=== PATIENT | male | born 1960 | race African-American/Black ===

== ENCOUNTER 2019-11-26 13:03 | Inpatient (IN) | payer MEDICAID, OTHER ==
[~2019-11-26] VITALS: Ht 177.8 cm; Wt 67.7 kg
[2019-11-26 13:03] VITALS: BP 96/60
--- NOTE | 2019-11-26 13:22 | Emergency Room Report ---
History of Present Illness General Chief Complaint: Syncope Source: Patient (Deny Painter MD) Present Illness HPI Disclaimer: Please note that this report is being documented using [employer] technology. This can lead to erroneous entry secondary to incorrect interpretation by the dictating instrument. HPI: 69-year-old male presents for evaluation after syncopal episode. Arrives by EMS. Reportedly he was found in the side outside of a nursing facility and bystander called EMS. They was hot to the touch though temperature reduced once he was brought to the shade. EMS states his systolic blood pressures were approximately 100. They started IV fluids. No difficulty arousing the patient. The patient is somnolent but arousable. He is able to tell us his name and date of . Is not complaining of anything but repeatedly falls asleep during exam. Not providing any useful history at this time. PMH: Unable to obtain from patient PSH: Unable to obtain from patient Allergies: Unable to obtain from patient Social Hx: Unable to obtain from patient (Deny Painter MD) Allergies: Coded Allergies: No Known Allergies (Unverified , 11/26/19) COVID-19 Screening Contact w/high risk pt: No Experienced COVID-19 symptoms?: No COVID-19 Testing performed MOBILE HOME LABORER: No (Deny Painter MD) Nursing Documentation-PMH Past Medical History: No History, Except For Hx Hypertension: Yes History Of Psychiatric Problem: Yes (Deny Painter MD) Review of Systems All Other Systems: negative except mentioned in HPI (Deny Painter MD) Physical Exam Vital Signs Date Time Temp Pulse Resp B/P (MAP) Pulse Ox O2 Delivery O2 Flow Rate FiO2 11/26/19 12:58 99.0 95 20 100/60 (73) 95 Room Air General: Somnolent but arousable. HEENT: NC/AT. No outward signs of trauma. EOMI. pupils are 3 mm and reactive to light bilaterally. Cardiovascular: RRR. S1 and S2 normal. No murmur appreciated Resp: Normal work of breathing. No cough, wheezing or crackles appreciated Abdomen: Abdomen is soft, nondistended. Nontender Skin: Intact. No abrasions, laceration or rash over the exposed skin MSK: Normal tone and bulk. Moving all extremities. No obvious deformity. Neuro: Somnolent but arousable. GCS 12. Moving all extremities. (Deny Painter MD) Procedures Critical Care Time Critical Care Time Total critical care time: Approximately 45 minutes Due to a high probability of clinically significant, life threatening deterioration, the patient required the highest level of preparedness to intervene emergently and I personally spent this critical care time directly and personally managing the patient. This critical care time included obtaining a history, examining the patient, pulse oximetry, ordering and reviewing studies, ordering treatments, evaluating response to treatment and updating management plan as needed, frequent reassessment and discussion with other providers as well as arranging for ultimate disposition. This critical to care time was performed to assess and manage the high probability of life-threatening deterioration that could result in multiorgan failure. This critical care time is separate from the separately billable procedures and treating other patients. (Deny Painter MD) Medical Decision Making Diagnostic Impression: Primary Impression: Pneumonia Additional Impressions: Hyperthermia associated with heat JANN (acute kidney injury) Hypokalemia ER Course Is a 69-year-old male presenting for altered level of consciousness after being found outside in the sun. Differential includes was not limited to dehydration, syncope, seizure, ACS, exhaustion, heat stroke, occult injury to name a few. CT head does not show acute injury. Labs show renal dysfunction and hypokalemia. Patient is receiving IV fluids and potassium supplementation. Troponin negative. EKG nonischemic. Chest XR shows possibly pneumonia. Patient will be given antibiotics. He will require admission. Laboratory Tests Test 11/26/19 13:13 11/26/19 13:43 11/26/19 15:15 11/27/19 06:20 White Blood Count 5.0 K/UL (4.8-10.8) 5.8 K/UL (4.8-10.8) Red Blood Count 4.15 M/UL (4.70-6.10) L 4.69 M/UL (4.70-6.10) L Hemoglobin 12.2 G/DL (14.2-18.0) L 13.6 G/DL (14.2-18.0) L Hematocrit 35.9 % (42.0-52.0) L 40.9 % (42.0-52.0) L Mean Corpuscular Volume 86 FL (80-99) 87 FL (80-99) Mean Corpuscular Hemoglobin 29.4 PG (27.0-31.0) 29.1 PG (27.0-31.0) Mean Corpuscular Hemoglobin Concent 34.0 G/DL (32.0-36.0) 33.3 G/DL (32.0-36.0) Red Cell Distribution Width 12.6 % (11.6-14.8) 12.7 % (11.6-14.8) Platelet Count 212 K/UL (150-450) 231 K/UL (150-450) Mean Platelet Volume 7.3 FL (6.5-10.1) 7.3 FL (6.5-10.1) Neutrophils (%) (Auto) 62.9 % (45.0-75.0) 64.6 % (45.0-75.0) Lymphocytes (%) (Auto) 19.5 % (20.0-45.0) L 20.9 % (20.0-45.0) Monocytes (%) (Auto) 12.0 % (1.0-10.0) H 9.7 % (1.0-10.0) Eosinophils (%) (Auto) 4.5 % (0.0-3.0) H 3.8 % (0.0-3.0) H Basophils (%) (Auto) 1.2 % (0.0-2.0) 1.0 % (0.0-2.0) Sodium Level 144 MMOL/L (136-145) 144 MMOL/L (136-145) Potassium Level 2.8 MMOL/L (3.5-5.1) L 3.0 MMOL/L (3.5-5.1) L Chloride Level 106 MMOL/L (98-107) 106 MMOL/L (98-107) Carbon Dioxide Level 29 MMOL/L (21-32) 29 MMOL/L (21-32) Anion Gap 9 mmol/L (5-15) 9 mmol/L (5-15) Blood Urea Nitrogen 23 mg/dL (7-18) H 15 mg/dL (7-18) Creatinine 1.6 MG/DL (0.55-1.30) H 1.5 MG/DL (0.55-1.30) H Estimated Glomerular Filtration Rate 52.5 mL/min (>60) 58.4 mL/min (>60) Glucose Level 97 MG/DL (74-106) 87 MG/DL (74-106) Calcium Level 8.8 MG/DL (8.5-10.1) 8.6 MG/DL (8.5-10.1) Total Bilirubin 0.5 MG/DL (0.2-1.0) 0.5 MG/DL (0.2-1.0) Aspartate Amino Transferase (AST) 26 U/L (15-37) 23 U/L (15-37) Alanine Aminotransferase (ALT) 40 U/L (12-78) 30 U/L (12-78) Alkaline Phosphatase 80 U/L (46-116) 88 U/L (46-116) Troponin I 0.000 ng/mL (0.000-0.056) Pro-B-Type Natriuretic Peptide 137 pg/mL (0-125) H Total Protein 7.1 G/DL (6.4-8.2) 7.1 G/DL (6.4-8.2) Albumin 3.5 G/DL (3.4-5.0) 3.4 G/DL (3.4-5.0) Globulin 3.6 g/dL 3.7 g/dL Albumin/Globulin Ratio 1.0 (1.0-2.7) 0.9 (1.0-2.7) L Serum Alcohol < 3 mg/dL Urine Color Pale yellow Urine Appearance Slightly cloudy Urine pH 6 (4.5-8.0) Urine Specific [place] 1.010 (1.005-1.035) Urine Protein Negative (NEGATIVE) Urine Glucose (UA) Negative (NEGATIVE) Urine Ketones Negative (NEGATIVE) Urine Blood Negative (NEGATIVE) Urine Nitrite Negative (NEGATIVE) Urine Bilirubin Negative (NEGATIVE) Urine Urobilinogen Normal MG/DL (0.0-1.0) Urine Leukocyte Esterase 1+ (NEGATIVE) H Urine RBC 0-2 /HPF (0 - 0) H Urine WBC 0-2 /HPF (0 - 0) Urine Squamous Epithelial Cells Occasional /LPF Urine Bacteria Occasional /HPF (NONE) Urine Opiates Screen Negative (NEGATIVE) Urine Barbiturates Screen Negative (NEGATIVE) Phencyclidine (PCP) Screen Negative (NEGATIVE) Urine Amphetamines Screen Negative (NEGATIVE) Urine Benzodiazepines Screen Negative (NEGATIVE) Urine Cocaine Screen Negative (NEGATIVE) Urine Marijuana (THC) Screen Negative (NEGATIVE) Lactic Acid Level 0.40 mmol/L (0.4-2.0) Triglycerides Level 45 MG/DL (30-150) Cholesterol Level 114 MG/DL (< 200) LDL Cholesterol 48 mg/dL (<100) HDL Cholesterol 58 MG/DL (40-60) Cholesterol/HDL Ratio 2.0 (3.3-4.4) L Thyroid Stimulating Hormone (TSH) 1.352 uiU/mL (0.358-3.740) Test 11/28/19 05:48 White Blood Count 5.9 K/UL (4.8-10.8) Red Blood Count 4.86 M/UL (4.70-6.10) Hemoglobin 14.3 G/DL (14.2-18.0) Hematocrit 42.1 % (42.0-52.0) Mean Corpuscular Volume 87 FL (80-99) Mean Corpuscular Hemoglobin 29.4 PG (27.0-31.0) Mean Corpuscular Hemoglobin Concent 34.0 G/DL (32.0-36.0) Red Cell Distribution Width 12.8 % (11.6-14.8) Platelet Count 231 K/UL (150-450) Mean Platelet Volume 7.2 FL (6.5-10.1) Neutrophils (%) (Auto) 63.7 % (45.0-75.0) Lymphocytes (%) (Auto) 24.6 % (20.0-45.0) Monocytes (%) (Auto) 4.9 % (1.0-10.0) Eosinophils (%) (Auto) 5.3 % (0.0-3.0) H Basophils (%) (Auto) 1.5 % (0.0-2.0) Sodium Level 143 MMOL/L (136-145) Potassium Level 3.4 MMOL/L (3.5-5.1) L Chloride Level 106 MMOL/L (98-107) Carbon Dioxide Level 28 MMOL/L (21-32) Anion Gap 9 mmol/L (5-15) Blood Urea Nitrogen 13 mg/dL (7-18) Creatinine 1.4 MG/DL (0.55-1.30) H Estimated Glomerular Filtration Rate > 60 mL/min (>60) Glucose Level 84 MG/DL (74-106) Calcium Level 8.8 MG/DL (8.5-10.1) Phosphorus Level 2.4 MG/DL (2.5-4.9) L Magnesium Level 1.8 MG/DL (1.8-2.4) Microbiology Date/Time Source Procedure Growth Status 11/26/19 15:15 Nasopharynx SARS-CoV-2 RdRp Gene Assay - Final Complete (Deny Painter MD) ER Course Patient was endorsed me by Dr. Painter. See Dr. Painter's notes for full HPI and physical.Chest x-ray had showed a left lower lobe pneumonia. Patient had normal white blood count. He was noted to be febrile initially. Prior history of schizoaffective disorder. Coronavirus testing was ordered. Coronavirus test was negative. Patient was given IV antibiotics Patient's case was discussed with Dr[facility] for panel admission. Labs Test 11/26/19 13:13 11/26/19 13:43 White Blood Count 5.0 K/UL (4.8-10.8) Red Blood Count 4.15 M/UL (4.70-6.10) Hemoglobin 12.2 G/DL (14.2-18.0) Hematocrit 35.9 % (42.0-52.0) Mean Corpuscular Volume 86 FL (80-99) Mean Corpuscular Hemoglobin 29.4 PG (27.0-31.0) Mean Corpuscular Hemoglobin Concent 34.0 G/DL (32.0-36.0) Red Cell Distribution Width 12.6 % (11.6-14.8) Platelet Count 212 K/UL (150-450) Mean Platelet Volume 7.3 FL (6.5-10.1) Neutrophils (%) (Auto) 62.9 % (45.0-75.0) Lymphocytes (%) (Auto) 19.5 % (20.0-45.0) Monocytes (%) (Auto) 12.0 % (1.0-10.0) Eosinophils (%) (Auto) 4.5 % (0.0-3.0) Basophils (%) (Auto) 1.2 % (0.0-2.0) Sodium Level 144 MMOL/L (136-145) Potassium Level 2.8 MMOL/L (3.5-5.1) Chloride Level 106 MMOL/L (98-107) Carbon Dioxide Level 29 MMOL/L (21-32) Anion Gap 9 mmol/L (5-15) Blood Urea Nitrogen 23 mg/dL (7-18) Creatinine 1.6 MG/DL (0.55-1.30) Estimat Glomerular Filtration Rate 52.5 mL/min (>60) Glucose Level 97 MG/DL (74-106) Calcium Level 8.8 MG/DL (8.5-10.1) Total Bilirubin 0.5 MG/DL (0.2-1.0) Aspartate Amino Transf (AST/SGOT) 26 U/L (15-37) Alanine Aminotransferase (ALT/SGPT) 40 U/L (12-78) Alkaline Phosphatase 80 U/L (46-116) Troponin I 0.000 ng/mL (0.000-0.056) Total Protein 7.1 G/DL (6.4-8.2) Albumin 3.5 G/DL (3.4-5.0) Globulin 3.6 g/dL Albumin/Globulin Ratio 1.0 (1.0-2.7) Serum Alcohol < 3 mg/dL Urine Color Pale yellow Urine Appearance Slightly cloudy Urine pH 6 (4.5-8.0) Urine Specific [place] 1.010 (1.005-1.035) Urine Protein Negative (NEGATIVE) Urine Glucose (UA) Negative (NEGATIVE) Urine Ketones Negative (NEGATIVE) Urine Blood Negative (NEGATIVE) Urine Nitrite Negative (NEGATIVE) Urine Bilirubin Negative (NEGATIVE) Urine Urobilinogen Normal MG/DL (0.0-1.0) Urine Leukocyte Esterase 1+ (NEGATIVE) Urine Opiates Screen Negative (NEGATIVE) Urine Barbiturates Screen Negative (NEGATIVE) Phencyclidine (PCP) Screen Negative (NEGATIVE) Urine Amphetamines Screen Negative (NEGATIVE) Urine Benzodiazepines Screen Negative (NEGATIVE) Urine Cocaine Screen Negative (NEGATIVE) Urine Marijuana (THC) Screen Negative (NEGATIVE) (Tyson Osorio MD) EKG Diagnostic Results EKG Time: 13:07 Rate: normal Rhythm: NSR ST Segments: no acute changes Other Impression Sinus rhythm, normal axis, normal intervals, no ST segment changes (Deny Painter MD) Rhythm Strip Diag. Results Rhythm Strip Time: 13:07 EP Interpretation: yes Rate: 89 Rhythm: NSR, no PVC's, no ectopy (Deny Painter MD) Last Vital Signs Date Time Temp Pulse Resp B/P (MAP) Pulse Ox O2 Delivery O2 Flow Rate FiO2 11/26/19 12:58 99.0 95 20 100/60 (73) 95 Room Air (Deny Painter MD) Status: improved (Tyson Osorio MD) Disposition: ADMITTED INPATIENT Condition: Stable Deny Painter MD Nov 26, 2019 13:22 Tyson Osorio MD Nov 26, 2019 14:46
[2019-11-26 13:36] LABS: BASOPHILS % (AUTO) 1.2 % (0.0-2.0); EOSINOPHILS % (AUTO) 4.5 % (0.0-3.0); HEMATOCRIT 35.9 % (42.0-52.0); HEMOGLOBIN 12.2 G/DL (14.2-18.0); LYMPHOCYTES % (AUTO) 19.5 % (20.0-45.0); MEAN CORPUSCULAR VOLUME 86 FL (80-99); NEUTROPHILS % (AUTO) 62.9 % (45.0-75.0); PLATELET COUNT 212 K/UL (150-450); RED BLOOD COUNT 4.15 M/UL (4.70-6.10); RED CELL DISTRIBUTION WIDTH 12.6 % (11.6-14.8)
[2019-11-26] MEDS ORDERED: POTASSIUM CHLO20 ME3 PO (13:40)
[2019-11-26] MEDS ORDERED: METOPROLOL SUCC50 MG ORAL (13:40)
[2019-11-26] MEDS ORDERED: REMERON30 MG ORAL (13:40)
[2019-11-26] MEDS ORDERED: VITAMIN D32400 UNIT/ MC (13:40)
[2019-11-26] MEDS ORDERED: AMLODIPINE BESY10 MG ORAL (13:40)
[2019-11-26] MEDS ORDERED: THORAZINE10 MG PO (13:40)
[2019-11-26] MEDS ORDERED: HYDROCHLOROTHIA25 MG ORAL (13:40)
[2019-11-26] MEDS ORDERED: SEROQUEL200 MG ORAL (13:40)
[2019-11-26] MEDS ORDERED: BENZTROPINE MESY1 MG ORAL (13:40)
[2019-11-26] MEDS ORDERED: FERROUS SULFAT325 MG ORAL (13:40)
[2019-11-26 13:52] LABS: ALANINE AMINOTRANSFERASE 40 U/L (12-78); ALBUMIN 3.5 G/DL (3.4-5.0); ALKALINE PHOSPHATASE 80 U/L (46-116); ANION GAP 9 mmol/L (5-15); ASPARTATE AMINO TRANSFERASE 26 U/L (15-37); BILIRUBIN,TOTAL 0.5 MG/DL (0.2-1.0); BLOOD UREA NITROGEN 23 mg/dL (7-18); CALCIUM 8.8 MG/DL (8.5-10.1); CARBON DIOXIDE 29 MMOL/L (21-32); CHLORIDE 106 MMOL/L (98-107); CREATININE 1.6 MG/DL (0.55-1.30); POTASSIUM 2.8 MMOL/L (3.5-5.1); SODIUM 144 MMOL/L (136-145)
[2019-11-26 14:03] LABS: APPEARANCE,URINE SLIGHTLY CLOUDY; BILIRUBIN, URINE NEGATIVE (NEGATIVE); COLOR,URINE PALE YELLOW; GLUCOSE, URINE (UA) NEGATIVE (NEGATIVE); KETONES,URINE NEGATIVE (NEGATIVE); LEUKOCYTE ESTERASE ,URINE 1+ (NEGATIVE); NITRITE,URINE NEGATIVE (NEGATIVE); PH,URINE 6 (4.5-8.0); PROTEIN,URINE NEGATIVE (NEGATIVE); UROBILINOGEN,URINE NORMAL MG/DL (0.0-1.0)
--- NOTE | 2019-11-26 14:25 | Diagnostic Imaging Report ---
CT HEAD Without Contrast HISTORY: Altered mental status TECHNIQUE: One or more of the following dose reduction techniques were used: automated exposure control, adjustment of the mA and/or kV according to patient size, use of iterative reconstruction technique. Coronal reconstructions were obtained. One or more of the following dose reduction techniques were used: automated exposure control, adjustment of the mA and/or kV according to patient size, use of iterative reconstruction technique. Total Exam volume computed tomography dose index (CTDIvol) = 53.4 mGy and Dose Length Product (DLP) = 965.4 mGY-c COMPARISON: Head CT June 16, 2011 FINDINGS: No intracranial hemorrhage, abnormal intra- or extra-axial collections or parenchymal lesions are seen. The shape and configuration of the cortical sulci, basal cisterns and ventricles are within normal limits. The denise-white differentiation is preserved. No evidence of mass effect, midline shift, or edema. The osseous structures are unremarkable. The visualized portions of the paranasal sinuses are clear. Subcutaneous cyst within the right scalp. IMPRESSION: No acute intracranial findings.
--- NOTE | 2019-11-26 14:30 | Diagnostic Imaging Report ---
FILM CXR 1 VIEW INDICATION: Altered mental status COMPARISON: June 16, 2011 FINDINGS: Single frontal view demonstrates a normal cardiomediastinal silhouette. Left lower lobe pneumonia. Air-filled loops of bowel in the upper abdomen. No pleural effusions. The visualized osseous structures are within normal limits. IMPRESSION: Left lower lobe pneumonia.
[2019-11-26] MEDS ORDERED: cefTRIAXone 1 GM in NS 55 ML IVPB ONE (14:45)
[2019-11-26 16:00] VITALS: BP 124/79
[2019-11-26] MEDS ORDERED: Albuterol/Ipratropium 3ml neb HHN PRN (16:45)
[2019-11-26] MEDS ORDERED: Metoclopramide 10mg/2ml Inj IVP PRN (16:45)
[2019-11-26] MEDS ORDERED: Miralax 17gm pkt ORAL PRN (16:45)
--- NOTE | 2019-11-26 17:30 | History and Physical ---
History of Present Illness General Date patient seen: Nov 26, 2019 Reason for Hospitalization: Syncope Present Illness HPI Mr. Kaur is a 59M with PMh of schizophrenia, COPD, HTN, and Vit D deficiency who presented via ambulance after being found unresponsive outside. Majority of history taken from discussion with ED physician as patient is poor historian. Per ED physician, patient resides at a assisted living facility and was found unresponsive by bystanders outside the facility. Upon EMS arrival patient was found "hot" and brought under the shade for cooling measures. He was arousable able to respond to most answers appropriately. Vitals were wnl. He does not remember how he got to the hospital. He says he has a hx of schizophrenia but does not know his medications. He is positive for a cough, sob, intermittent chest pain, and constipation. Denies fevers, chills. No head trauma. No other hx was attainable. Rest of 10 point ROS is negative besides whats stated above. In the ED, patient was found to be hemodynmically stable and started on IVF. CT brain was negative for acute pathology and CXR showed LLL PNA. He was started on abx. He will be admitted for PNA, syncope, and JANN. PMH: Schziophrenia, COPD, HTN, VIt D deficiency Sx: none Fx: denies cardiac, pulmonary diseases Aller:nka Soc: social drinker, denies smoking or drug use Allergies: Coded Allergies: No Known Allergies (Unverified , 11/26/19) COVID-19 Screening Contact w/high risk pt: No Experienced COVID-19 symptoms?: No Medication History Scheduled Amlodipine Besylate* (Amlodipine Besylate*), 10 MG ORAL DAILY, (Reported) Benztropine Mesylate* (Benztropine Mesylate*), 1 MG ORAL BID, (Reported) Chlorpromazine (Chlorpromazine HCl), 100 MG PO QID, (Reported) Cholecalciferol (Vitamin D3) (Vitamin D3), 5,000 UNIT MC weekly, (Reported) Ferrous Sulfate* (Ferrous Sulfate*), 325 MG ORAL TWICE A DAY, (Reported) Hydrochlorothiazide* (Hydrochlorothiazide*), 25 MG ORAL DAILY, (Reported) Metoprolol Succinate* (Metoprolol Succinate*), 50 MG ORAL DAILY, (Reported) Mirtazapine* (Remeron*), 30 MG ORAL BEDTIME, (Reported) Potassium Chloride (Potassium Chloride), 8 MEQ PO DAILY, (Reported) Quetiapine Fumarate* (Seroquel*), 300 MG ORAL DAILY, (Reported) Patient History Healthcare decision maker Resuscitation status Advanced Directive on File Physical Exam General Appearance: no apparent distress, lethargic, confused, obese HEENT: normocephalic, atraumatic Neck: non-tender, normal inspection Respiratory/Chest: normal breath sounds, no respiratory distress, crackles/rales, rhonchi - bilaterally Cardiovascular/Chest: normal rate, regular rhythm, no JVD Abdomen: normal bowel sounds, non tender, soft Extremities: pitting - bilateral pitting edema Skin Exam: warm/dry Neurologic: manager target II-XII grossly normal, disoriented Last 24 Hour Vital Signs Date Time Temp Pulse Resp B/P (MAP) Pulse Ox O2 Delivery O2 Flow Rate FiO2 11/26/19 16:00 98.9 68 17 124/79 99 Room Air 11/26/19 13:03 99.1 78 20 96/60 95 Room Air 11/26/19 12:58 99.0 95 20 100/60 (73) 95 Room Air Laboratory Tests Test 11/26/19 13:13 11/26/19 13:43 11/26/19 15:15 White Blood Count 5.0 K/UL (4.8-10.8) Red Blood Count 4.15 M/UL (4.70-6.10) L Hemoglobin 12.2 G/DL (14.2-18.0) L Hematocrit 35.9 % (42.0-52.0) L Mean Corpuscular Volume 86 FL (80-99) Mean Corpuscular Hemoglobin 29.4 PG (27.0-31.0) Mean Corpuscular Hemoglobin Concent 34.0 G/DL (32.0-36.0) Red Cell Distribution Width 12.6 % (11.6-14.8) Platelet Count 212 K/UL (150-450) Mean Platelet Volume 7.3 FL (6.5-10.1) Neutrophils (%) (Auto) 62.9 % (45.0-75.0) Lymphocytes (%) (Auto) 19.5 % (20.0-45.0) L Monocytes (%) (Auto) 12.0 % (1.0-10.0) H Eosinophils (%) (Auto) 4.5 % (0.0-3.0) H Basophils (%) (Auto) 1.2 % (0.0-2.0) Sodium Level 144 MMOL/L (136-145) Potassium Level 2.8 MMOL/L (3.5-5.1) L Chloride Level 106 MMOL/L (98-107) Carbon Dioxide Level 29 MMOL/L (21-32) Anion Gap 9 mmol/L (5-15) Blood Urea Nitrogen 23 mg/dL (7-18) H Creatinine 1.6 MG/DL (0.55-1.30) H Estimat Glomerular Filtration Rate 52.5 mL/min (>60) Glucose Level 97 MG/DL (74-106) Calcium Level 8.8 MG/DL (8.5-10.1) Total Bilirubin 0.5 MG/DL (0.2-1.0) Aspartate Amino Transf (AST/SGOT) 26 U/L (15-37) Alanine Aminotransferase (ALT/SGPT) 40 U/L (12-78) Alkaline Phosphatase 80 U/L (46-116) Troponin I 0.000 ng/mL (0.000-0.056) Total Protein 7.1 G/DL (6.4-8.2) Albumin 3.5 G/DL (3.4-5.0) Globulin 3.6 g/dL Albumin/Globulin Ratio 1.0 (1.0-2.7) Serum Alcohol < 3 mg/dL Urine Color Pale yellow Urine Appearance Slightly cloudy Urine pH 6 (4.5-8.0) Urine Specific [place] 1.010 (1.005-1.035) Urine Protein Negative (NEGATIVE) Urine Glucose (UA) Negative (NEGATIVE) Urine Ketones Negative (NEGATIVE) Urine Blood Negative (NEGATIVE) Urine Nitrite Negative (NEGATIVE) Urine Bilirubin Negative (NEGATIVE) Urine Urobilinogen Normal MG/DL (0.0-1.0) Urine Leukocyte Esterase 1+ (NEGATIVE) H Urine RBC 0-2 /HPF (0 - 0) H Urine WBC 0-2 /HPF (0 - 0) Urine Squamous Epithelial Cells Occasional /LPF Urine Bacteria Occasional /HPF (NONE) Urine Opiates Screen Negative (NEGATIVE) Urine Barbiturates Screen Negative (NEGATIVE) Phencyclidine (PCP) Screen Negative (NEGATIVE) Urine Amphetamines Screen Negative (NEGATIVE) Urine Benzodiazepines Screen Negative (NEGATIVE) Urine Cocaine Screen Negative (NEGATIVE) Urine Marijuana (THC) Screen Negative (NEGATIVE) Lactic Acid Level 0.40 mmol/L (0.4-2.0) Microbiology Date/Time Source Procedure Growth Status 11/26/19 15:15 Nasopharynx SARS-CoV-2 RdRp Gene Assay - Final Complete Height (Feet): 5 Height (Inches): 10.00 Weight (Pounds): 150 Medications Current Medications Medications (Trade) Dose Ordered Sig/Efraín Route PRN Reason Start Time Stop Time Status Last Admin Dose Admin Acetaminophen (Tylenol) 650 mg Q4H PRN ORAL Mild Pain (Pain Scale 1-3) 11/26/19 16:45 12/26/19 16:44 UNV Albuterol/ Ipratropium (Albuterol/ Ipratropium) 3 ml Q4H PRN HHN Shortness of Breath 11/26/19 16:45 12/01/19 16:44 UNV Azithromycin 500 mg/Dextrose 275 ml @ 275 mls/hr Q24H IV 11/26/19 17:45 12/01/19 17:44 UNV Bisacodyl (Dulcolax) 10 mg DAILYPRN PRN RECTAL Constipation 11/26/19 16:45 02/24/20 16:44 UNV Ceftriaxone Sodium 1 gm/ Dextrose 55 ml @ 110 mls/hr Q24H IV 11/26/19 17:45 12/03/19 17:44 UNV Heparin Sodium (Porcine) (Heparin 5000 units/ml) 5,000 units EVERY 12 HOURS SUBQ 11/26/19 21:00 01/10/20 20:59 UNV Metoclopramide HCl (Reglan) 10 mg Q6H PRN IVP Nausea & Vomiting 11/26/19 16:45 12/26/19 16:44 UNV Polyethylene Glycol (Miralax) 17 gm DAILYPRN PRN ORAL Constipation 11/26/19 16:45 12/26/19 16:44 UNV Assessment/Plan Assessment/Plan: Mr. Kaur merle 59M with PMH of scheizphrenia who is brought in for ?syncope, PNA and Jann # Syncope 2/2 cardiogenic vs orthostatic vs medication induced vs heat exhaustion # Left Lower Lobe CAP # JANN likely 2/2 pre-renal azotemia # Hx of Schizophrenia # Hz of COPD # Hx of HTN # Dependent Edema # Prolong Qt - Qtc 484 # Hx of Vitamin D Deficiency P: - hemodynamically stable - orthostatic vital signs - hold BP Meds given possible syncope - trops negative - ekg: nsr, no intraventricular conduction abnormalities, has lateral T wave flattening - f/u ECHO - start Rocephin, azithromycin for PNA - f/u BC - UA, and drug screen negative - IVF - monitor renal function - consult psychiatry, recs appreciated - continue home psych meds, will defer psych meds - PT - CM GI: none Diet: regular Fluids: NS 75 cc Abx: Rocephin, azithromycin DVT: heparin 5000 mg BID CODE: Full Diso: pending syncope work up, response to abx, and psych consult In addition to the usual care above I spent additional time reviewing records in the EMR and paper charts including physician documentation, nursing documentation, lab results, imaging and clinical documentation. Total time included was 35 min. Advanced care planning 25 minutes was spent which included discussion of both acute and chronic medical illnesses, code status, goals of care and advanced directives and POLST. Time spent on this encounter was 85 minutes which included 45 minutes of counse ling and care coordination. I discussed with the nurse at bedside. Time of note may not reflect time patient was seen. Tyson Maldonado D.O Nov 26, 2019 17:30
[2019-11-26 17:52] VITALS: BP 128/65
[2019-11-26] MEDS: Azithromycin 500 MG in D5W 275 ML IV SCH (18:30)
[2019-11-26 21:00] VITALS: BP_SYST 108; BP_SYST 124; BP_DIAS 62; BP_DIAS 86
[2019-11-26] MEDS: Heparin 5000 units/ml inj SUBQ SCH (21:00)
--- NOTE | 2019-11-26 21:07 | General Progress Note ---
Advance Care Planning Advance Care Planning Advance Care Planning [facility] An independent Hospitalist group, where every patient is our [facility] Internal Medicine Hospitalist Advanced Care Planning Note Please contact us at Date of Discussion: A [id number] discussion with the patient regarding the patient's advanced care planning took place during this hospitalization on the above date. The discussion included the explanation and discussion of advance directives and associated forms/documents, as well as the patient's current code status. We also discussed at length the patient's medical conditions (both acute and chroni c), general prognosis, treatment options, and goals of care. The following summarizes the discussion: Advance Care Planning/Goals of Care: - Will attempt to fill out an AD and/or POLST with the patient prior to discharge, if not already completed - Continue current evaluation and management of any acute and chronic medical issues - Will continue to support the patient/family - Will continue to discuss both short- and long-term goals of care DPOA-HC/Surrogate Decision Maker: None currently appointed Code Status: Full Code Advanced Care Planning Forms/Documents Completed: Deferred until later encounter/visit A total of 17 minutes was spent on this discussion, including counseling, answering questions, and completing, if any, pertinent advanced care planning forms/documents. Time of note may not reflect time of encounter. Tyson Maldonado D.O Nov 26, 2019 21:07
[2019-11-27] VITALS: BP 118/73
[2019-11-27 04:00] VITALS: BP 115/69
[2019-11-27 07:24] LABS: EOSINOPHILS % (AUTO) 3.8 % (0.0-3.0); HEMATOCRIT 40.9 % (42.0-52.0); HEMOGLOBIN 13.6 G/DL (14.2-18.0); LYMPHOCYTES % (AUTO) 20.9 % (20.0-45.0); MEAN CORPUSCULAR VOLUME 87 FL (80-99); MONOCYTES % (AUTO) 9.7 % (1.0-10.0); NEUTROPHILS % (AUTO) 64.6 % (45.0-75.0); PLATELET COUNT 231 K/UL (150-450); RED BLOOD COUNT 4.69 M/UL (4.70-6.10); RED CELL DISTRIBUTION WIDTH 12.7 % (11.6-14.8); WHITE BLOOD COUNT 5.8 K/UL (4.8-10.8)
[2019-11-27 07:41] LABS: ALANINE AMINOTRANSFERASE 30 U/L (12-78); ALBUMIN 3.4 G/DL (3.4-5.0); ALBUMIN/GLOBULIN RATIO 0.9 (1.0-2.7); ALKALINE PHOSPHATASE 88 U/L (46-116); ANION GAP 9 mmol/L (5-15); ASPARTATE AMINO TRANSFERASE 23 U/L (15-37); BILIRUBIN,TOTAL 0.5 MG/DL (0.2-1.0); BLOOD UREA NITROGEN 15 mg/dL (7-18); CALCIUM 8.6 MG/DL (8.5-10.1); CARBON DIOXIDE 29 MMOL/L (21-32); CHLORIDE 106 MMOL/L (98-107); CHOLESTEROL 114 MG/DL (< 200); CREATININE 1.5 MG/DL (0.55-1.30); HDL CHOLESTEROL 58 MG/DL (40-60); SODIUM 144 MMOL/L (136-145); TRIGLYCERIDES 45 MG/DL (30-150)
[2019-11-27 08:00] VITALS: BP 102/69
[2019-11-27] MEDS: Heparin 5000 units/ml inj SUBQ SCH ×2 (08:42→20:06)
--- NOTE | 2019-11-27 10:44 | General Progress Note ---
Subjective Date patient seen: Nov 27, 2019 Constitutional: Denies: no symptoms, chills, diaphoresis, fever, malaise, weakness, other HEENT: Denies: no symptoms, eye pain, blurred vision, tearing, double vision, ear pain, ear discharge, nose pain, nose congestion, throat pain, throat swelling, mouth pain, mouth swelling, other Cardiovascular: Denies: no symptoms, chest pain, edema, irregular heart rate, lightheadedness, palpitations, syncope, other Respiratory: Denies: no symptoms, cough, orthopnea, shortness of breath, SOB with excertion, SOB at rest, sputum, stridor, wheezing, other Gastrointestinal/Abdominal: Denies: no symptoms, abdomen distended, abdominal pain, black stools, tarry stools, blood in stool, constipated, diarrhea, difficulty swallowing, nausea, poor appetite, poor fluid intake, rectal bleeding, vomiting, other Genitourinary: Denies: no symptoms, burning, discharge, frequency, flank pain, hematuria, incontinence, pain, urgency, other Neurologic/Psychiatric: Denies: no symptoms, anxiety, depressed, emotional problems, headache, numbness, paresthesia, pre-existing deficit, seizure, tingling, tremors, weakness, other Endocrine: Denies: no symptoms, excessive sweating, flushing, intolerance to cold, intolerance to heat, increased hunger, increased thirst, increased urine, unexplained weight gain, unexplained weight loss, other Hematologic/Lymphatic: Denies: no symptoms, anemia, easy bleeding, easy bruising, other Allergies: Coded Allergies: No Known Allergies (Unverified , 11/26/19) Subjective no acute events overnight. Patient much more awake and alert this morning, however, AOx1. He is able to answer questions on ROS appropraitely. Denies fevers, cough, sob, chest pain, pre-syncope. Pending psych eval. Objective Last 24 Hour Vital Signs Date Time Temp Pulse Resp B/P (MAP) Pulse Ox O2 Delivery O2 Flow Rate FiO2 11/27/19 08:00 98.1 77 21 102/69 (80) 96 11/27/19 04:00 97.9 73 19 115/69 (84) 96 11/27/19 04:00 70 11/27/19 00:11 Room Air 11/27/19 00:00 70 11/27/19 00:00 98.1 86 19 118/73 (88) 96 11/26/19 21:00 97.5 89 20 124/86 (99) 97 11/26/19 21:00 68 11/26/19 20:48 98.6 67 15 109/73 100 Room Air 11/26/19 17:52 98.6 72 15 128/65 100 Room Air 11/26/19 16:00 98.9 68 17 124/79 99 Room Air 11/26/19 13:03 99.1 78 20 96/60 95 Room Air 11/26/19 12:58 99.0 95 20 100/60 (73) 95 Room Air Intake and Output 11/26/19 11/27/19 19:00 07:00 Intake Total 2255 ml 2000 ml Output Total 0 ml 2000 ml Balance 2255 ml 0 ml Intake Oral 0 ml IV Total 2255 ml 2000 ml Output Urine Total 0 ml 2000 ml Laboratory Tests 11/26/19 13:13: White Blood Count 5.0, Red Blood Count 4.15L, Hemoglobin 12.2L, Hematocrit 35.9L , Mean Corpuscular Volume 86, Mean Corpuscular Hemoglobin 29.4, Mean Corpuscular Hemoglobin Concent 34.0, Red Cell Distribution Width 12.6, Platelet Count 212, Mean Platelet Volume 7.3, Neutrophils (%) (Auto) 62.9, Lymphocytes (%) (Auto) 19.5L, Monocytes (%) (Auto) 12.0H, Eosinophils (%) (Auto) 4.5H, Basophils (%) (Auto) 1.2, Sodium Level 144, Potassium Level 2.8L, Chloride Level 106, Carbon Dioxide Level 29, Anion Gap 9, Blood Urea Nitrogen 23H, Creatinine 1.6H, Estimat Glomerular Filtration Rate 52.5, Glucose Level 97, Calcium Level 8.8, Total Bilirubin 0.5, Aspartate Amino Transf (AST/SGOT) 26, Alanine Aminotransferase (ALT/SGPT) 40, Alkaline Phosphatase 80, Troponin I 0.000, Pro-B-Type Natriuretic Peptide 137H, Total Protein 7.1, Albumin 3.5, Globulin 3.6, Albumin/Globulin Ratio 1.0, Serum Alcohol < 3 11/26/19 13:43: Urine Color Pale yellow, Urine Appearance Slightly cloudy, Urine pH 6, Urine Specific [place] 1.010, Urine Protein Negative, Urine Glucose (UA) Negative, Urine Ketones Negative, Urine Blood Negative, Urine Nitrite Negative, Urine Bilirubin Negative, Urine Urobilinogen Normal, Urine Leukocyte Esterase 1+H, Urine RBC 0-2H, Urine WBC 0-2, Urine Squamous Epithelial Cells Occasional, Urine Bacteria Occasional, Urine Opiates Screen Negative, Urine Barbiturates Screen Negative, Phencyclidine (PCP) Screen Negative, Urine Amphetamines Screen Negative, Urine Benzodiazepines Screen Negative, Urine Cocaine Screen Negative, Urine Marijuana (THC) Screen Negative 11/26/19 15:15: Lactic Acid Level 0.40 11/27/19 06:20: White Blood Count 5.8, Red Blood Count 4.69L, Hemoglobin 13.6L, Hematocrit 40.9L , Mean Corpuscular Volume 87, Mean Corpuscular Hemoglobin 29.1, Mean Corpuscular Hemoglobin Concent 33.3, Red Cell Distribution Width 12.7, Platelet Count 231, Mean Platelet Volume 7.3, Neutrophils (%) (Auto) 64.6, Lymphocytes (%) (Auto) 20.9, Monocytes (%) (Auto) 9.7, Eosinophils (%) (Auto) 3.8H, Basophils (%) (Auto) 1.0, Sodium Level 144, Potassium Level 3.0L, Chloride Level 106, Carbon Dioxide Level 29, Anion Gap 9, Blood Urea Nitrogen 15, Creatinine 1.5H, Estimat Glomerular Filtration Rate 58.4, Glucose Level 87, Calcium Level 8.6, Total Bilirubin 0.5, Aspartate Amino Transf (AST/SGOT) 23, Alanine Aminotransferase (ALT/SGPT) 30, Alkaline Phosphatase 88, Total Protein 7.1, Albumin 3.4, Globulin 3.7, Albumin/Globulin Ratio 0.9L, Triglycerides Level 45, Cholesterol Level 114, LDL Cholesterol 48, HDL Cholesterol 58, Cholesterol/HDL Ratio 2.0L, Thyroid Stimulating Hormone (TSH) 1.352 Height (Feet): 5 Height (Inches): 10.00 Weight (Pounds): 150 General Appearance: no apparent distress, alert, other - Aox1 EENT: PERRL/EOMI Neck: normal alignment, supple, normal inspection Cardiovascular: normal rate, regular rhythm, no JVD Respiratory/Chest: no respiratory distress, crackles/rales Abdomen: normal bowel sounds, non tender, soft Extremities: normal range of motion, non-tender Edema: no edema noted Arm (L), no edema noted Arm (R); 1+ Leg (L), 1+ Leg (R) Neurologic: mail delivery supervisor II-XII grossly normal, disoriented Assessment/Plan Assessment/Plan: Mr. Kaur merle 59M with PMH of scheizphrenia who is brought in for ?syncope, PNA and Sylvester # Acute on ?chronic encephalopathy 2/2 heat exhaustion, medication non- compliance, PNA - improved # Syncope 2/2 cardiogenic vs orthostatic vs medication induced vs heat exhaustion # Left Lower Lobe CAP # SYLVESTER likely 2/2 pre-renal azotemia # Hx of Schizophrenia # Hz of COPD # Hx of HTN # Dependent Edema # Prolong Qt - Qtc 484 # Hx of Vitamin D Deficiency P: - hemodynamically stable, more awake today - hold BP Meds given possible syncope - ekg: nsr, no intraventricular conduction abnormalities, has lateral T wave flattening - f/u ECHO given ekg findings, LE edema - continue Rocephin, azithromycin for PNA - f/u BC - UA, and drug screen negative - IVF - monitor renal function, slightly improving - consult psychiatry, recs appreciated - will defer psych meds - PT - CM GI: none Diet: regular Fluids: NS 125 cc Abx: Rocephin, azithromycin DVT: heparin 5000 mg BID CODE: Full Diso: mentation improving, pending psych consult, renal consult, d/c back to living facility when improved Time spent on this encounter was 45 minutes which included 45 minutes of counseling and care coordination. I discussed with the nurse at bedside. Time of note may not reflect time patient was seen. Tyson Maldonado D.O Nov 27, 2019 10:44
[2019-11-27 15:46] VITALS: BP 120/80
[2019-11-27] MEDS ORDERED: cefTRIAXone 1 GM in D5W 55 ML IVPB SCH (17:00)
[2019-11-27] MEDS: Azithromycin 500 MG in D5W 275 ML IV SCH (18:06)
[2019-11-27 20:00] VITALS: BP 116/72
[2019-11-27] MEDS ORDERED: POTASSIUM CHLOR8 ME2 PO (21:46)
[2019-11-27] MEDS ORDERED: MIRTAZAPINE15 M3 ORAL (21:46)
[2019-11-27] MEDS ORDERED: CHLORPROMAZINE100 MG PO (21:46)
[2019-11-27] MEDS ORDERED: VITAMIN D3125 MCG PO (21:46)
[2019-11-27] MEDS ORDERED: QUETIAPINE FUM300 MG ORAL (21:46)
--- NOTE | 2019-11-27 22:38 | Psych Consult Progress Note ---
Psychiatry Progress Note Psychiatry Progress Note Medications Current Medications Medications (Trade) Dose Ordered Sig/Efraín Route PRN Reason Start Time Stop Time Status Last Admin Dose Admin Acetaminophen (Tylenol) 650 mg Q4H PRN ORAL Mild Pain (Pain Scale 1-3) 11/26/19 16:45 12/26/19 16:44 Albuterol/ Ipratropium (Albuterol/ Ipratropium) 3 ml Q4H PRN HHN Shortness of Breath 11/26/19 16:45 12/01/19 16:44 Azithromycin 500 mg/Dextrose 275 ml @ 275 mls/hr Q24H IV 11/26/19 18:30 12/01/19 18:29 11/27/19 18:06 Bisacodyl (Dulcolax) 10 mg DAILYPRN PRN RECTAL Constipation 11/26/19 16:45 02/24/20 16:44 Ceftriaxone Sodium 1 gm/ Dextrose 55 ml @ 110 mls/hr Q24H IVPB 11/27/19 17:00 12/04/19 16:59 11/27/19 16:28 Escitalopram Oxalate (Lexapro) 10 mg DAILY ORAL 11/28/19 09:00 12/28/19 08:59 Heparin Sodium (Porcine) (Heparin 5000 units/ml) 5,000 units EVERY 12 HOURS SUBQ 11/26/19 21:00 01/10/20 20:59 11/27/19 20:06 Metoclopramide HCl (Reglan) 10 mg Q6H PRN IVP Nausea & Vomiting 11/26/19 16:45 12/26/19 16:44 Polyethylene Glycol (Miralax) 17 gm DAILYPRN PRN ORAL Constipation 11/26/19 16:45 12/26/19 16:44 Risperidone (RisperDAL) 2 mg BEDTIME ORAL 11/27/19 21:00 01/11/20 20:59 11/27/19 20:05 Sodium Chloride 1,000 ml @ 125 mls/hr Q8H IV 11/26/19 17:00 12/26/19 16:59 11/27/19 11:58 Neurological/Psychiatric: Denies: no symptoms, anxiety, depressed, emotional problems, headache, numbness, paresthesia, pre-existing deficit, seizure, tingling, tremors, weakness, other Allergies: Coded Allergies: No Known Allergies (Unverified , 11/26/19) Objective Data Height (Feet): 5 Height (Inches): 10.00 Weight (Pounds): 150 General Appearance: no apparent distress, alert, other - Aox1 Kirstin Fairchild MD Nov 27, 2019 22:38
--- NOTE | 2019-11-27 23:15 | Consultation ---
DATE OF CONSULTATION: 11/27/2019 CONSULTING PHYSICIAN: Kirstin Fairchild MD. HISTORY OF PRESENT ILLNESS: This is a 59-year-old male with a history of depression and psychotic disorder who was admitted to the hospital for medical stabilization. Patient has a history of schizophrenia, COPD, , and hypertension. Patient is a poor historian. Has anxiety, auditory hallucination, depressed mood, anhedonia, worthlessness, hopelessness. No SI or HI. Has cognitive impairment. PAST PSYCHIATRIC HISTORY: Schizophrenia. He stated that he has had several psychiatric hospitalizations. No suicide attempt. Unable to recall the medications taken in the past for schizophrenia. PAST MEDICAL HISTORY: COPD, hypertension, vitamin D deficiency. ALLERGIES: No known drug allergies. SUBSTANCE ABUSE HISTORY: He denies illicit drug use or alcohol. Toxicology is negative. MENTAL STATUS EXAMINATION: Alert, oriented times self, place, and situation. Mood is depressed and anxious. Affect is blunted and congruent with mood. Thought process is concrete. Thought content, no suicidal or homicidal ideation. Positive for auditory hallucinations. Cognition is impaired. Insight and judgment is impaired. ASSESSMENT: Everton I Schizophrenia. Anxiety disorder. Everton II Deferred. Everton III As above. Everton IV Low. Everton V 20. PLAN: 1. We will start patient on Lexapro 10 mg in the morning. 2. Risperidone 2 mg at bedtime. 3. Provide the patient with reality orientation. 4. Supportive therapy. Kirstin Fairchild M.D. DR: GIANNI JOB#: [id number] CC:
[2019-11-27 23:56] VITALS: BP 120/67
[2019-11-28 06:46] LABS: BASOPHILS % (AUTO) 1.5 % (0.0-2.0); EOSINOPHILS % (AUTO) 5.3 % (0.0-3.0); HEMATOCRIT 42.1 % (42.0-52.0); HEMOGLOBIN 14.3 G/DL (14.2-18.0); LYMPHOCYTES % (AUTO) 24.6 % (20.0-45.0); MEAN CORPUSCULAR VOLUME 87 FL (80-99); MONOCYTES % (AUTO) 4.9 % (1.0-10.0); NEUTROPHILS % (AUTO) 63.7 % (45.0-75.0); PLATELET COUNT 231 K/UL (150-450); RED BLOOD COUNT 4.86 M/UL (4.70-6.10); RED CELL DISTRIBUTION WIDTH 12.8 % (11.6-14.8); WHITE BLOOD COUNT 5.9 K/UL (4.8-10.8)
[2019-11-28 07:19] LABS: ANION GAP 9 mmol/L (5-15); BLOOD UREA NITROGEN 13 mg/dL (7-18); CALCIUM 8.8 MG/DL (8.5-10.1); CARBON DIOXIDE 28 MMOL/L (21-32); CHLORIDE 106 MMOL/L (98-107); CREATININE 1.4 MG/DL (0.55-1.30); PHOSPHORUS 2.4 MG/DL (2.5-4.9); POTASSIUM 3.4 MMOL/L (3.5-5.1); SODIUM 143 MMOL/L (136-145)
[2019-11-28 08:00] VITALS: BP 124/83
[2019-11-28] MEDS: Heparin 5000 units/ml inj SUBQ SCH (08:02)
[2019-11-28 11:59] VITALS: BP 116/72
[2019-11-28] MEDS ORDERED: LEXAPRO10 MG ORAL ×2 (13:30→14:41)
[2019-11-28] MEDS ORDERED: RISPERDAL2 MG ORAL ×2 (13:30→14:41)
[2019-11-28] MEDS ORDERED: AUGMENTIN 875-1 EAC1 ORAL ×2 (13:30→14:41)
[2019-11-28 16:00] VITALS: BP 132/79
--- NOTE | 2019-11-28 16:28 | Discharge Summary ---
Discharge Summary Hospital Course Date of Admission Nov 26, 2019 at 18:00 Date of Discharge Admitting Diagnosis heat syncope HPI Rigoberto Kaur is a 59 year old male who was admitted on Nov 26, 2019 at 18:00 for Heat Syncope Hospital Course PHYSICAL EXAM: General: Resting comfortably in bed HEENT: EOMI, Neck Supple Cardiac: Regular rate and rhythm Lungs: CTABL Skin: warm and dry Neuro: CN II-XII grossly intact # Syncope 2/2 cardiogenic vs orthostatic vs medication induced vs heat exhaustio n # Left Lower Lobe CAP Patient initially presented with hypotension likely 2' heat exhaustion and volume depletion. CXR was consistent with LLL pna. Patient was started on azithromycin and rocephen. BC x2 were negative. Covid19 testing was negative. Patient is to continue on Augmentin for 5d for a total of 7d of treatment. # JANN likely 2/2 pre-renal azotemia Likely 2' volume depletion. Creatinine downtrending with fluids. # Hx of Schizophrenia Evaluated by Psychiatry in patient. Patient was not taking his medications prior to admission which likely contributed to altered mentation on admission. He is to start on Risperdal and Lexapro. Prior home medications were discontinued on discharge, per recs from Psychiatry. # Hx of HTN Continue on current home medications # Prolong Qt - Qtc 484 # Hx of Vitamin D Deficiency Continue PO home meds. Diet: regular CODE: Full Discharged to [facility]. Time spent on this encounter was 45 minutes which included 25minutes of counseling and care coordination with Psychiatry, CM, and Nursing staff. Time of note may not reflect time patient was seen. Discharge Condition Upon Discharge: stable Discharge Vital Signs Last Vital Signs Date Time Temp Pulse Resp B/P (MAP) Pulse Ox O2 Delivery O2 Flow Rate FiO2 11/28/19 16:00 97.1 83 18 132/79 (96) 100 11/28/19 09:00 Room Air Discharge Disposition Patient was discharged to [facility] Nuvia Malik M.D. Nov 28, 2019 16:28
--- NOTE | 2019-11-28 19:57 | Cardiology Report ---
APPROVED REPORT EXAM: Two-dimensional and M-mode echocardiogram with Doppler and color Doppler. INDICATION Syncope M-Mode DIMENSIONS IVSd1.1 (0.7-1.1cm)Left Atrium (MM)3.4 (1.6-4.0cm) LVDd4.4 (3.5-5.6cm)Aortic Root3.0 (2.0-3.7cm) PWd1.0 (0.7-1.1cm)Aortic Cusp Exc.2.0 (1.5-2.0cm) IVSs1.1 cmEPSS0.9 (>1.0cm) LVDs3.3 (2.5-4.0cm) PWs1.6 cm <Conclusion> Technically difficult study due to poor acoustical windows. Normal left ventricular chamber size, mildly depressed systolic function and wall motion to extent visualized. Left ventricular ejection fraction estimated to be 50 %. No evidence of left ventricular hypertrophy. No evidence of pericardial effusion. Left atrial size within normal limits. Right atrial size at upper limits of normal. Right ventricular chamber size is within normal limits. Focal aortic valve sclerosis with adequate cusp excursion. Thickened mitral valve leaflets with normal excursion. Mitral annulus and aortic root calcification. Normal pulmonic valve structure. IVC at normal size with physiologic collapse. A color flow and spectral Doppler study was performed and revealed: No aortic regurgitation. Mild mitral regurgitation. Mitral diastolic velocities suggest reduced left ventricular relaxation c/w mild LV diastolic dysfunction (Grade I ). Mild to moderate tricuspid regurgitation. Tricuspid systolic velocities suggests peak right ventricular systolic pressure of 37 mmHg consistent with borderline mild pulmonary hypertension. No pulmonic regurgitation present.
--- NOTE | 2019-11-28 20:05 | Cardiology Report ---
APPROVED REPORT EKG Measurement Heart [id number] <Conclusion> Normal sinus rhythm ST & T wave abnormality, consider lateral ischemia Prolonged QT Abnormal ECG
--- NOTE | 2019-11-28 22:58 | Psych Consult Progress Note ---
Psychiatry Progress Note Psychiatry Progress Note Neurological/Psychiatric: Denies: no symptoms, anxiety, depressed, emotional problems, headache, numbness, paresthesia, pre-existing deficit, seizure, tingling, tremors, weakness, other Allergies: Coded Allergies: No Known Allergies (Unverified , 11/26/19) Objective Data Height (Feet): 5 Height (Inches): 10.00 Weight (Pounds): 150 General Appearance: no apparent distress, alert, other - Aox1 Kirstin Fairchild MD Nov 28, 2019 22:58
== END 2019-11-28 16:19 | disposition home or self-care (01) | DRG 139 ==
LOC: EDBD 13:03 → EMR 13:52 → EDBD 13:52 → EDBEDREQ 17:52 → 2E 18:00 → 4E 11-27 17:09
DX: J18.9 Pneumonia, unspecified organism (principal); T67.1XXA Heat syncope, initial encounter; X30.XXXA Exposure to excessive natural heat, initial encounter; G93.49 Other encephalopathy; N17.9 Acute kidney failure, unspecified; J44.9 Chronic obstructive pulmonary disease, unspecified; I95.1 Orthostatic hypotension; I10 Essential (primary) hypertension; F20.9 Schizophrenia, unspecified; F41.9 Anxiety disorder, unspecified; R94.31 Abnormal electrocardiogram [ECG] [EKG]; E55.9 Vitamin D deficiency, unspecified; E86.9 Volume depletion, unspecified
CPT/HCPCS: 36415; 70450; 71045; 80048; 80053; 80061; 80307; 81003; 83605; 83735; 83880; 84100; 84443; 84484; 85025; 87040; 87081; 93005; 93306; 96361; 96365; 96368; 99285; G0480; J7030; J8499; U0002

== ENCOUNTER 2019-12-06 14:31 | Inpatient (IN) | payer MEDICAID ==
[~2019-12-06] VITALS: Ht 182.9 cm; Wt 85.0 kg
[~2019-12-06 14:31] MED LIST: AMLODIPINE BESY10 MG ORAL; AUGMENTIN 875-1 EAC1 ORAL; BENZTROPINE MESY1 MG ORAL; CHLORPROMAZINE100 MG PO; FERROUS SULFAT325 MG ORAL; HYDROCHLOROTHIA25 MG ORAL; LEXAPRO10 MG ORAL; METOPROLOL SUCC50 MG ORAL; MIRTAZAPINE15 M3 ORAL; POTASSIUM CHLO20 ME3 PO; POTASSIUM CHLOR8 ME2 PO; QUETIAPINE FUM300 MG ORAL; REMERON30 MG ORAL; RISPERDAL2 MG ORAL; SEROQUEL200 MG ORAL; THORAZINE10 MG PO; VITAMIN D3125 MCG PO; VITAMIN D32400 UNIT/ MC
--- NOTE | 2019-12-06 14:41 | NUR ---
ED Nurse Note: Patient from [facility] and was brought in by [facility] due to ALOC. Per EMS, patient was found altered on the floor in the hallway of the facility where he stays. EMS also states that BP was hypotensive and pt desats to 91% in room air. Pt came in AAO x1, follows commands with non labored breathing. Sats 98-100 % in room air. 100CC NS given en route.
[2019-12-06 15:06] VITALS: BP 120/77
--- NOTE | 2019-12-06 15:16 | NUR ---
ED Nurse Note: Patient taken to CT via [place]. Pt still drowsy.
--- NOTE | 2019-12-06 15:30 | NUR ---
ED Nurse Note: Patient came back from CT.
--- NOTE | 2019-12-06 15:45 | Emergency Room Report ---
History of Present Illness General Chief Complaint: Altered Mental Status Source: Patient Present Illness HPI Disclaimer: Please note that this report is being documented using DRAGON technology. This can lead to erroneous entry secondary to incorrect interpretation by the dictating instrument. HPI: 69-year-old male presents for evaluation after altered mental status. Recent admitted to this hospital for heat syncope and pneumonia. He stays at a psych care facility. Found down in a stairwell for unknown amount of time. Somnolent lethargic. Withdraws to pain. No purposeful movements. No signs of outward trauma according to EMS. Cannot obtain any information from patient. No history of anticoagulant use. PMH: Hypertension, schizophrenia PSH: Unable to obtain from patient Allergies: Unable to obtain from patient Social Hx: Unable to obtain from patient Allergies: Coded Allergies: No Known Allergies (Unverified , 11/26/19) COVID-19 Screening Contact w/high risk pt: No Experienced COVID-19 symptoms?: No COVID-19 Testing performed TIMBER POISONER: No Nursing Documentation-PMH Past Medical History: No History, Except For Hx Hypertension: Yes History Of Psychiatric Problem: Yes Review of Systems All Other Systems: limited - Unable to obtain due to clinical condition Physical Exam Vital Signs Date Time Temp Pulse Resp B/P (MAP) Pulse Ox O2 Delivery O2 Flow Rate FiO2 12/06/19 14:31 98.4 88 18 100/50 (67) 98 Non-Rebreather 15.0 General: Awake and alert, no apparent distress HEENT: NC/AT. EOMI. Cardiovascular: RRR. S1 and S2 normal. No murmur appreciated Resp: Normal work of breathing. No cough, wheezing or crackles appreciated Abdomen: Abdomen is soft, nondistended. Nontender Skin: Intact. No abrasions, laceration or rash over the exposed skin MSK: Normal tone and bulk. Moving all extremities. No obvious deformity. Neuro: Somnolent, withdraws to pain. GCS 7 Procedures Critical Care Time Critical Care Time Total critical care time: Approximately 45 minutes Due to a high probability of clinically significant, life threatening deterioration, the patient required the highest level of preparedness to intervene emergently and I personally spent this critical care time directly and personally managing the patient. This critical care time included obtaining a history, examining the patient, pulse oximetry, ordering and reviewing studies, ordering treatments, evaluating response to treatment and updating management plan as needed, frequent reassessment and discussion with other providers as well as arranging for ultimate disposition. This critical to care time was performed to assess and manage the high probability of life-threatening deterioration that could result in multiorgan failure. This critical care time is separate from the separately billable procedures and treating other patients. Medical Decision Making Diagnostic Impression: Primary Impression: Hypokalemia Additional Impressions: Altered mental status Prolonged QT interval ER Course 59-year-old male presents for altered mental status after being found down in [facility] facility. Differential includes not limited to dehydration, psychiatric issue, intoxication, trauma, syncope, seizure, ACS among others. Labs showed moderate hypokalemia the patient receiving IV repletion. CT of the head did not show acute injury. CT scan of the torso did not show persistent pneumonia. Patient's mentation largely unchanged though he is protecting his airway in no distress. Vital signs remained within normal limits. He required readmission. Will readmit to [facility] based on previous admission Laboratory Tests Test 12/06/19 15:45 12/06/19 16:20 White Blood Count 11.3 K/UL (4.8-10.8) H Red Blood Count 4.54 M/UL (4.70-6.10) L Hemoglobin 13.5 G/DL (14.2-18.0) L Hematocrit 40.9 % (42.0-52.0) L Mean Corpuscular Volume 90 FL (80-99) Mean Corpuscular Hemoglobin 29.8 PG (27.0-31.0) Mean Corpuscular Hemoglobin Concent 33.1 G/DL (32.0-36.0) Red Cell Distribution Width 13.7 % (11.6-14.8) Platelet Count 239 K/UL (150-450) Mean Platelet Volume 7.6 FL (6.5-10.1) Neutrophils (%) (Auto) % (45.0-75.0) Lymphocytes (%) (Auto) % (20.0-45.0) Monocytes (%) (Auto) % (1.0-10.0) Eosinophils (%) (Auto) % (0.0-3.0) Basophils (%) (Auto) % (0.0-2.0) Differential Total Cells Counted 100 Neutrophils % (Manual) 84 % (45-75) H Lymphocytes % (Manual) 10 % (20-45) L Monocytes % (Manual) 6 % (1-10) Eosinophils % (Manual) 0 % (0-3) Basophils % (Manual) 0 % (0-2) Band Neutrophils 0 % (0-8) Platelet Estimate Adequate Platelet Morphology Normal Red Blood Cell Morphology Normal Prothrombin Time 11.4 SEC (9.30-11.50) Prothrombin Time INR 1.0 (0.9-1.1) Activated Partial Thromboplast Time 28 SEC (23-33) Sodium Level 139 MMOL/L (136-145) Potassium Level 2.7 MMOL/L (3.5-5.1) *L Chloride Level 102 MMOL/L (98-107) Carbon Dioxide Level 27 MMOL/L (21-32) Anion Gap 9 mmol/L (5-15) Blood Urea Nitrogen 23 mg/dL (7-18) H Creatinine 1.7 MG/DL (0.55-1.30) H Estimated Glomerular Filtration Rate 50.7 mL/min (>60) Glucose Level 122 MG/DL (74-106) H Calcium Level 9.1 MG/DL (8.5-10.1) Total Bilirubin 0.4 MG/DL (0.2-1.0) Aspartate Amino Transferase (AST) 24 U/L (15-37) Alanine Aminotransferase (ALT) 33 U/L (12-78) Alkaline Phosphatase 96 U/L (46-116) Total Creatine Kinase 187 U/L (26-308) Troponin I 0.000 ng/mL (0.000-0.056) Total Protein 7.8 G/DL (6.4-8.2) Albumin 3.7 G/DL (3.4-5.0) Globulin 4.1 g/dL Albumin/Globulin Ratio 0.9 (1.0-2.7) L Salicylates Level 1.3 ug/mL (2.8-20) L Acetaminophen Level < 2 MCG/ML (10-30) L Serum Alcohol < 3 mg/dL Urine Color Pale yellow Urine Appearance Clear Urine pH 6 (4.5-8.0) Urine Specific [place] 1.010 (1.005-1.035) Urine Protein Negative (NEGATIVE) Urine Glucose (UA) Negative (NEGATIVE) Urine Ketones Negative (NEGATIVE) Urine Blood Negative (NEGATIVE) Urine Nitrite Negative (NEGATIVE) Urine Bilirubin Negative (NEGATIVE) Urine Urobilinogen Normal MG/DL (0.0-1.0) Urine Leukocyte Esterase Negative (NEGATIVE) Urine Opiates Screen Negative (NEGATIVE) Urine Barbiturates Screen Negative (NEGATIVE) Phencyclidine (PCP) Screen Negative (NEGATIVE) Urine Amphetamines Screen Negative (NEGATIVE) Urine Benzodiazepines Screen Negative (NEGATIVE) Urine Cocaine Screen Negative (NEGATIVE) Urine Marijuana (THC) Screen Negative (NEGATIVE) EKG Diagnostic Results Troponin ordered: Yes When was troponin ordered?: Dec 06, 2019 EKG Time: 18:20 Rate: normal Rhythm: NSR Other Impression Sinus rhythm, normal axis, prolonged QTC 544 ms Rhythm Strip Diag. Results Rhythm Strip Time: 18:20 EP Interpretation: yes Rate: 78 Rhythm: NSR, no PVC's, no ectopy Chest X-Ray Diagnostic Results Chest X-Ray Diagnostic Results : Chest X-Ray Ordered: Yes Indication: Other - AMS Interpretation: no consolidation, no effusion, no pneumothorax Impression: No acute disease Electronically Signed by: Electronically signed by Dr. Deny Painter Last Vital Signs Date Time Temp Pulse Resp B/P (MAP) Pulse Ox O2 Delivery O2 Flow Rate FiO2 12/06/19 15:06 98.4 78 16 120/77 99 Room Air 12/06/19 14:31 15.0 Disposition: ADMITTED INPATIENT Condition: Serious Deny Painter MD Dec 06, 2019 15:45
--- NOTE | 2019-12-06 16:02 | Diagnostic Imaging Report ---
Indications: Altered level of consciousness Technique: Spiral acquisitions obtained through the brain. Angled axial and coronal 5 x 5 mm slices were reconstructed. Total dose length product 992 mGycm. CTDI vol(s) 53 mGy. Dose reduction achieved using automated exposure control Comparison: 06/16/2011 Findings: No acute intracranial hemorrhage or edema. No mass effect nor midline shift. Normal john-white differentiation. Visualized orbits and sinuses are unremarkable. The calvarium is intact. The mastoids are clear. No significant change Impression: Negative The CT scanner at [facility] is accredited by the [employer] and the scans are performed using protocols designed to limit radiation exposure to as low as reasonably achievable to attain images of sufficient resolution adequate for diagnostic evaluation.
[2019-12-06] MEDS ORDERED: MIRTAZAPINE30 MG ORAL (16:05)
[2019-12-06] MEDS ORDERED: THORAZINE10 MG PO (16:05)
[2019-12-06] MEDS ORDERED: SEROQUEL200 MG ORAL (16:05)
[2019-12-06] MEDS ORDERED: BENZTROPINE MESY1 MG ORAL (16:05)
[2019-12-06] MEDS ORDERED: VITAMIN D31 M1 MC (16:05)
--- NOTE | 2019-12-06 16:08 | NUR ---
ED Nurse Note: Collected urine then sent.
[2019-12-06 16:11] LABS: HEMATOCRIT 40.9 % (42.0-52.0); HEMOGLOBIN 13.5 G/DL (14.2-18.0); MEAN CORPUSCULAR VOLUME 90 FL (80-99); PLATELET COUNT 239 K/UL (150-450); RED BLOOD COUNT 4.54 M/UL (4.70-6.10); RED CELL DISTRIBUTION WIDTH 13.7 % (11.6-14.8); WHITE BLOOD COUNT 11.3 K/UL (4.8-10.8)
[2019-12-06 16:22] LABS: ALANINE AMINOTRANSFERASE 33 U/L (12-78); ALBUMIN 3.7 G/DL (3.4-5.0); ALBUMIN/GLOBULIN RATIO 0.9 (1.0-2.7); ALKALINE PHOSPHATASE 96 U/L (46-116); ANION GAP 9 mmol/L (5-15); ASPARTATE AMINO TRANSFERASE 24 U/L (15-37); BILIRUBIN,TOTAL 0.4 MG/DL (0.2-1.0); BLOOD UREA NITROGEN 23 mg/dL (7-18); CALCIUM 9.1 MG/DL (8.5-10.1); CARBON DIOXIDE 27 MMOL/L (21-32); CHLORIDE 102 MMOL/L (98-107); CREATINE KINASE 187 U/L (26-308); CREATININE 1.7 MG/DL (0.55-1.30); SODIUM 139 MMOL/L (136-145)
[2019-12-06 16:24] LABS: POTASSIUM 2.7 MMOL/L (3.5-5.1)
--- NOTE | 2019-12-06 16:26 | Diagnostic Imaging Report ---
Clinical Indication: Trauma, pain, status post fall Technique: Spiral acquisitions obtained through the chest. No IV contrast utilized, . Multiplanar reconstructions generated. Total dose length product 313 mGycm. CTDIvol(s) 7 mGy. Dose reduction achieved using automated exposure control Comparison: none Findings: Images of the lower ribs are degraded due to respiratory motion artifact. No definite acute fractures. No evidence of retrosternal hematoma. No evidence of significant soft tissue contusion. There are bilateral small pleural effusions. There are bilateral basilar pulmonary compressive atelectatic changes. There are some areas of mosaic perfusion pattern, particularly in the upper lobes. No dense consolidation. Some bands of atelectasis are seen in the right middle lobe and the lingula. No definite masses or nodules. The heart size is normal. No pericardial effusion. A calcification is seen within or adjacent to the distal esophagus. No mediastinal or hilar mass or adenopathy. The thyroid is unremarkable. No axillary or chest wall mass or adenopathy. Included upper abdominal anatomy demonstrates unusual cluster of punctate calcifications within the left renal cortex. There is a left upper pole renal cyst. Calyceal calcifications are seen within the kidneys bilaterally. Impression: No evidence of significant acute bony or soft tissue trauma. Bilateral small pleural effusions Basilar compressive atelectatic changes Unusual clustered calcifications in the left kidney, calcified mass possible. Recommend further evaluation with contrast CT and/or ultrasound The CT scanner at [facility] is accredited by the [employer] and the scans are performed using protocols designed to limit radiation exposure to as low as reasonably achievable to attain images of sufficient resolution adequate for diagnostic evaluation.
[2019-12-06 16:48] LABS: APPEARANCE,URINE CLEAR; BILIRUBIN, URINE NEGATIVE (NEGATIVE); COLOR,URINE PALE YELLOW; GLUCOSE, URINE (UA) NEGATIVE (NEGATIVE); KETONES,URINE NEGATIVE (NEGATIVE); LEUKOCYTE ESTERASE ,URINE NEGATIVE (NEGATIVE); NITRITE,URINE NEGATIVE (NEGATIVE); PH,URINE 6 (4.5-8.0); PROTEIN,URINE NEGATIVE (NEGATIVE); UROBILINOGEN,URINE NORMAL MG/DL (0.0-1.0)
[2019-12-06 17:04] VITALS: BP 115/76
--- NOTE | 2019-12-06 17:50 | NUR ---
ED Nurse Note: Patient resting on bed with eyes closed. Respirations even and unlabored. Potassium drip running via IV infusion pump.
[2019-12-06] MEDS ORDERED: Acetaminophen 650 MG SUPP RECTAL PRN (18:45)
[2019-12-06] MEDS ORDERED: Albuterol/Ipratropium 3ml neb HHN PRN (18:45)
[2019-12-06] MEDS ORDERED: Miralax 17gm pkt ORAL PRN (18:45)
[2019-12-06 19:02] VITALS: BP 128/87
--- NOTE | 2019-12-06 19:12 | NUR ---
HAND-OFF: Report given to Donte RN.
--- NOTE | 2019-12-06 19:13 | NUR ---
ED Nurse Note: Report received from HAILEY Pedroza RN. Patient on bed resting.
--- NOTE | 2019-12-06 19:15 | History and Physical ---
History of Present Illness General Date patient seen: Dec 06, 2019 Reason for Hospitalization: Altered Mental Status Present Illness HPI Mr. Abdi is a 59-year-old male with past medical history of schizophrenia, syncope, left lower lobe pneumonia, JANN, COPD, hypertension, prolonged QT, and vitamin D deficiency who presents after being found down at a psych facility and altered mental status. Entire history was taken from discussion with the ED and nurse at bedside as patient is currently altered and to unable to answer majority of questions. Per ED physician patient was found down at a psych facility. No known loss of consciousness, head trauma, seizures. No other history available. In the ED, initial work-up with head CT Noncon and chest CT did not show any acute pathologies. Initial WBC elevated at 11 with JANN and hypokalemia. EKG pending tropes pending. U tox negative alcohol levels negative. Will admit for altered mental status and renal failure. PMH: schizophrenia, syncope, pneumonia, JANN, COPD, hypertension, vitamin D d eficiency Sx: none Fx: denies cardiac, pulmonary diseases Aller:nka Soc: social drinker, denies smoking or drug use Rest of medical history taken from chart review . Allergies: Coded Allergies: No Known Allergies (Unverified , 11/26/19) COVID-19 Screening Contact w/high risk pt: No Experienced COVID-19 symptoms?: No Medication History Scheduled Amlodipine Besylate* (Amlodipine Besylate*), 10 MG ORAL DAILY, (Reported) Amoxicillin/Potassium Clav 875-125* (Augmentin 875-125 Tablet*), 1 TAB ORAL TWICE A DAY Benztropine Mesylate* (Benztropine Mesylate*), 2 MG ORAL BID, (Reported) Chlorpromazine (Chlorpromazine HCl), 100 MG PO QID, (Reported) Cholecalciferol (Vitamin D3) (Vitamin D3), 125 MCG PO weekly, (Reported) Escitalopram Oxalate* (Lexapro*), 10 MG ORAL DAILY Ferrous Sulfate* (Ferrous Sulfate*), 325 MG ORAL TWICE A DAY, (Reported) Hydrochlorothiazide* (Hydrochlorothiazide*), 25 MG ORAL DAILY, (Reported) Metoprolol Succinate* (Metoprolol Succinate*), 50 MG ORAL DAILY, (Reported) Mirtazapine* (Remeron*), 30 MG ORAL BEDTIME, (Reported) Potassium Chloride (Potassium Chloride), 8 MEQ PO DAILY, (Reported) Quetiapine Fumarate* (Seroquel*), 300 MG ORAL DAILY, (Reported) Risperidone* (Risperdal*), 2 MG ORAL BEDTIME Miscellaneous Medications Cholecalciferol (Vitamin D3) (Vitamin D3), 5,000 UNITS , (Reported) Patient History Healthcare decision maker Resuscitation status Advanced Directive on File Review of Systems ROS Narrative Unable to do 10 point review of system due to patient's altered mental status, as he was unable to answer majority of questions Physical Exam General Appearance: no apparent distress, lethargic, other - AOx1 HEENT: normocephalic, atraumatic Neck: non-tender, supple, normal inspection Respiratory/Chest: lungs clear, normal breath sounds, no respiratory distress Cardiovascular/Chest: normal rate, regular rhythm, no JVD Abdomen: normal bowel sounds, non tender, soft - No guarding or rebound Extremities: normal range of motion, non-tender, pitting - +1 bilateral pitting edema Skin Exam: normal pigmentation, warm/dry Neurologic: plowing gardens II-XII grossly normal, disoriented - AOx1 Last 24 Hour Vital Signs Date Time Temp Pulse Resp B/P (MAP) Pulse Ox O2 Delivery O2 Flow Rate FiO2 12/06/19 17:04 97.8 75 20 115/76 100 Room Air 12/06/19 15:06 98.4 78 16 120/77 99 Room Air 12/06/19 14:41 78 16 Room Air 12/06/19 14:31 98.4 88 18 100/50 (67) 98 Non-Rebreather 15.0 Laboratory Tests Test 12/06/19 15:45 12/06/19 16:20 White Blood Count 11.3 K/UL (4.8-10.8) H Red Blood Count 4.54 M/UL (4.70-6.10) L Hemoglobin 13.5 G/DL (14.2-18.0) L Hematocrit 40.9 % (42.0-52.0) L Mean Corpuscular Volume 90 FL (80-99) Mean Corpuscular Hemoglobin 29.8 PG (27.0-31.0) Mean Corpuscular Hemoglobin Concent 33.1 G/DL (32.0-36.0) Red Cell Distribution Width 13.7 % (11.6-14.8) Platelet Count 239 K/UL (150-450) Mean Platelet Volume 7.6 FL (6.5-10.1) Neutrophils (%) (Auto) % (45.0-75.0) Lymphocytes (%) (Auto) % (20.0-45.0) Monocytes (%) (Auto) % (1.0-10.0) Eosinophils (%) (Auto) % (0.0-3.0) Basophils (%) (Auto) % (0.0-2.0) Differential Total Cells Counted 100 Neutrophils % (Manual) 84 % (45-75) H Lymphocytes % (Manual) 10 % (20-45) L Monocytes % (Manual) 6 % (1-10) Eosinophils % (Manual) 0 % (0-3) Basophils % (Manual) 0 % (0-2) Band Neutrophils 0 % (0-8) Platelet Estimate Adequate Platelet Morphology Normal Red Blood Cell Morphology Normal Prothrombin Time 11.4 SEC (9.30-11.50) Prothromb Time International Ratio 1.0 (0.9-1.1) Activated Partial Thromboplast Time 28 SEC (23-33) Sodium Level 139 MMOL/L (136-145) Potassium Level 2.7 MMOL/L (3.5-5.1) *L Chloride Level 102 MMOL/L (98-107) Carbon Dioxide Level 27 MMOL/L (21-32) Anion Gap 9 mmol/L (5-15) Blood Urea Nitrogen 23 mg/dL (7-18) H Creatinine 1.7 MG/DL (0.55-1.30) H Estimat Glomerular Filtration Rate 50.7 mL/min (>60) Glucose Level 122 MG/DL (74-106) H Calcium Level 9.1 MG/DL (8.5-10.1) Total Bilirubin 0.4 MG/DL (0.2-1.0) Aspartate Amino Transf (AST/SGOT) 24 U/L (15-37) Alanine Aminotransferase (ALT/SGPT) 33 U/L (12-78) Alkaline Phosphatase 96 U/L (46-116) Total Creatine Kinase 187 U/L (26-308) Troponin I Pending Total Protein 7.8 G/DL (6.4-8.2) Albumin 3.7 G/DL (3.4-5.0) Globulin 4.1 g/dL Albumin/Globulin Ratio 0.9 (1.0-2.7) L Salicylates Level 1.3 ug/mL (2.8-20) L Acetaminophen Level < 2 MCG/ML (10-30) L Serum Alcohol < 3 mg/dL Urine Color Pale yellow Urine Appearance Clear Urine pH 6 (4.5-8.0) Urine Specific [place] 1.010 (1.005-1.035) Urine Protein Negative (NEGATIVE) Urine Glucose (UA) Negative (NEGATIVE) Urine Ketones Negative (NEGATIVE) Urine Blood Negative (NEGATIVE) Urine Nitrite Negative (NEGATIVE) Urine Bilirubin Negative (NEGATIVE) Urine Urobilinogen Normal MG/DL (0.0-1.0) Urine Leukocyte Esterase Negative (NEGATIVE) Urine Opiates Screen Negative (NEGATIVE) Urine Barbiturates Screen Negative (NEGATIVE) Phencyclidine (PCP) Screen Negative (NEGATIVE) Urine Amphetamines Screen Negative (NEGATIVE) Urine Benzodiazepines Screen Negative (NEGATIVE) Urine Cocaine Screen Negative (NEGATIVE) Urine Marijuana (THC) Screen Negative (NEGATIVE) Height (Feet): 6 Weight (Pounds): 200 Medications Current Medications Medications (Trade) Dose Ordered Sig/Efraín Route PRN Reason Start Time Stop Time Status Last Admin Dose Admin Acetaminophen (Tylenol) 650 mg Q4H PRN ORAL Mild Pain (Pain Scale 1-3) 12/06/19 18:45 01/05/20 18:44 UNV Acetaminophen (Tylenol) 650 mg Q4H PRN RECTAL Temp >100.5 12/06/19 18:45 01/05/20 18:44 UNV Albuterol/ Ipratropium (Albuterol/ Ipratropium) 3 ml Q4HR PRN HHN Shortness of Breath 12/06/19 18:45 12/11/19 18:44 UNV Bisacodyl (Dulcolax) 10 mg HSPRN PRN RECTAL Constipation 12/06/19 18:45 03/05/20 18:44 UNV Dextrose (Dextrose 50%) 25 ml Q30M PRN IV Hypoglycemia 12/06/19 18:45 03/05/20 18:44 UNV Dextrose (Dextrose 50%) 50 ml Q30M PRN IV Hypoglycemia 12/06/19 18:45 03/05/20 18:44 UNV Heparin Sodium (Porcine) (Heparin 5000 units/ml) 5,000 units EVERY 12 HOURS SUBQ 12/06/19 21:00 01/20/20 20:59 UNV Polyethylene Glycol (Miralax) 17 gm HSPRN PRN ORAL Constipation 12/06/19 18:45 01/05/20 18:44 UNV Sodium Chloride 1,000 ml @ 125 mls/hr Q8H IVLG 12/06/19 19:45 01/05/20 19:44 UNV Assessment/Plan Assessment/Plan: Mr. Abdi is a 59-year-old male with a past medical history of schizophrenia, COPD, hypertension, CKD, hypertension who presented after being found down at a psych facility. # Acute encephalopathy likely to 2/2 to toxic metabolic versus infectious versus medication noncompliance # JANN on CKD 2/2 prerenal azotemia versus ATN # Hypokalemia # Leukocytosis # History of schizophrenia #History of COPD # History of syncope secondary to heat exhaustion # Essential hypertension # Vitamin D deficiency P: - Hemodynamically stable - saturating well on room air, keep O2 sat > 92% - DuoNebs as needed - F/U EKG, troponin - CT head CT chest reviewed no acute pathologies noted - U tox, ethanol negative - IVF - F/U urine cultures, urinary potassium - IV potassium repletion by ED - Monitor renal function - f/u renal US - will hold psych meds for tonight, defer to psych tomorrow - Consult psychiatry, Recs appreciated - CM Code: Full GI: None Fluids: 125 cc NS Diet: Full DVT PP X: Heparin 5000 units twice daily Dispo: Pending AMS work-up and psych evaluation likely back to psych facility In addition to the usual care above I spent additional time reviewing records in the EMR and paper charts including physician documentation, nursing docu mentation, lab results, imaging and clinical documentation. Total time included was 31 min. Time spent on this encounter was 65 minutes which included 35 minutes of counseling and care coordination. I discussed with the nurse at bedside. Time of note may not reflect time patient was seen. Tyson Maldonado D.O Dec 06, 2019 19:15
--- NOTE | 2019-12-06 20:42 | NUR ---
ED Nurse Note: MRSA, VRE, CRE swabs sent
[2019-12-06] MEDS: Heparin 5000 units/ml inj SUBQ SCH (20:55)
--- NOTE | 2019-12-06 22:00 | NUR ---
ED Nurse Note: Report given to TRACY FERNÁNDEZ
[2019-12-06 22:30] VITALS: BP 118/78
--- NOTE | 2019-12-06 22:30 | NUR ---
TRANSFER TO FLOOR: Patient transferred to TELE at rm 216 via gurney, with secured entrance monitor, accompanied by RN. Belongings checked and given to RN. Patient transferred safely and endorsed to RN.
--- NOTE | 2019-12-06 22:40 | NUR ---
NURSE NOTES: Pt. received from JOLENE Kent. Pt. drowsy, difficult to arouse but can awaken with shaking, alert to name, breathing even on room air, no indications of respiratory distress, no indications of pain, VS stable. IV right AC 20g intact and patent, running 125cc/hr of NS. Belongings list checked and verified, pt. arrived with personal clothes. Bed low and locked, side rails x3 up, bed alarm active, and call light in reach.
[2019-12-07] VITALS: BP 119/77
--- NOTE | 2019-12-07 01:00 | NUR ---
NURSE NOTES: Wounds on bilateral feet cleaned and dressed. Wound pictures taken.
--- NOTE | 2019-12-07 03:49 | NUR ---
NURSE NOTES: Pt. attempted to get out of bed x3, pt. unsteady and suffered recent fall at previous facility. On each episode attempted to orient pt but pt. continues to be disoriented, only AAOx1 to name. Pt. with fall precautions in place, yellow socks, education, side rails x3 up, bed alarm active to zone 2, and call light in reach. Care needs offered and performed. Primary RN now sitting outside of pt. room to monitor. Charge nurse aware. Addendum: 12/07/19 at 0353 by Easton Flores RN Pt. restless and asks "to go to bed." Attempted to explain to pt. that he is in bed and at the hospital. Pt. still presenting with confusion.
[2019-12-07 04:00] VITALS: BP 119/77
[2019-12-07 05:59] LABS: BASOPHILS % (AUTO) 2.9 % (0.0-2.0); HEMATOCRIT 40.8 % (42.0-52.0); HEMOGLOBIN 13.8 G/DL (14.2-18.0); LYMPHOCYTES % (AUTO) 12.9 % (20.0-45.0); MEAN CORPUSCULAR VOLUME 86 FL (80-99); MONOCYTES % (AUTO) 8.8 % (1.0-10.0); NEUTROPHILS % (AUTO) 74.4 % (45.0-75.0); PLATELET COUNT 247 K/UL (150-450); RED BLOOD COUNT 4.74 M/UL (4.70-6.10); RED CELL DISTRIBUTION WIDTH 13.2 % (11.6-14.8); WHITE BLOOD COUNT 8.2 K/UL (4.8-10.8)
[2019-12-07 06:49] LABS: CALCIUM 8.6 MG/DL (8.5-10.1); CREATININE 1.6 MG/DL (0.55-1.30); PHOSPHORUS 1.9 MG/DL (2.5-4.9)
[2019-12-07 06:56] LABS: POTASSIUM 2.5 MMOL/L (3.5-5.1)
--- NOTE | 2019-12-07 07:20 | NUR ---
NURSE NOTES: K+ 2.5 received from blossom Negron, Dr. Correa notified, awaiting follow up orders.
--- NOTE | 2019-12-07 07:21 | NUR ---
NURSE NOTES: Received report from JOLENE Mccormack. Pt is A/O x1 and drowsy. No pain noted. No SOB or acute distress noted. Pt on RA and SATing well. Pt has fall precautions in place, side rails x 2 up, bed alarm active. Placed call light with in reach. Pt has a RAC 20G IV intact and patent. Reminded pt to use call light when he needs to use the restroom to have someone assist him. Will continue plan of care.
--- NOTE | 2019-12-07 07:28 | NUR ---
NURSE HAND-OFF REPORT: Important Events on Shift:[pt. attempting to get out of bed multiple times, high fall risk, fall measures implemented and pt. kept safe, wound care performed and pictures taken] Patient Status: sleeping Diet: regular Pending Orders: US renal Pending Results/Labs:K+ 2.5, Dr. Correa notified and endorsed to day shift nurse Pending MD notification:K+ 2.5 Latest Vital Signs: Temperature 97.7 , Pulse 77 , B/P 119 /77 , Respiratory Rate 18 , O2 SAT 96 , Room Air, O2 Flow Rate 15.0 . Vital Sign Comment: Stable EKG Rhythm: Sinus Rhythm Rhythm change?: N MD Notified?: - MD Response: Latest Causey Fall Score: 60 Fall Risk: High Risk Safety Measures: Call light Within Reach, Bed Alarm Zone 1, Side Rails Side Rails x3, Bed position Low and Locked. Fall Precautions: Yellow Socks Patient Fall Education Report given to JOLENE Farley.
[2019-12-07 08:00] VITALS: BP 118/92
[2019-12-07] MEDS ORDERED: Phospha 250 Neutral tab ORAL SCH (08:00)
--- NOTE | 2019-12-07 08:38 | General Progress Note ---
Subjective ROS Limited/Unobtainable: Yes - patient still altered, AOx1, does not answer many questions appropriately Allergies: Coded Allergies: No Known Allergies (Unverified , 11/26/19) Subjective no acute events overnight. Patient more awake and alert today, but still altered. Does not answer most questions appropriately. He does follow simple commands ie lift legs and arms on commands. VSS. Objective Last 24 Hour Vital Signs Date Time Temp Pulse Resp B/P (MAP) Pulse Ox O2 Delivery O2 Flow Rate FiO2 12/07/19 04:00 97.7 71 18 119/77 (91) 96 12/07/19 04:00 77 12/07/19 00:00 97.1 71 18 119/77 (91) 96 12/07/19 00:00 68 12/06/19 22:30 98.0 78 18 118/78 97 Room Air 12/06/19 22:30 97.8 82 18 128/87 97 Room Air 12/06/19 22:21 Room Air 15.0 12/06/19 19:02 97.8 82 16 128/87 97 Room Air 12/06/19 17:04 97.8 75 20 115/76 100 Room Air 12/06/19 15:06 98.4 78 16 120/77 99 Room Air 12/06/19 14:41 78 16 Room Air 12/06/19 14:31 98.4 88 18 100/50 (67) 98 Non-Rebreather 15.0 Intake and Output 12/06/19 12/07/19 18:59 06:59 Intake Total 200 ml 875 ml Output Total 800 ml Balance 200 ml 75 ml Intake IV Total 200 ml 875 ml Output Urine Total 800 ml Laboratory Tests 12/06/19 15:45: White Blood Count 11.3H, Red Blood Count 4.54L, Hemoglobin 13.5L, Hematocrit 40.9L, Mean Corpuscular Volume 90, Mean Corpuscular Hemoglobin 29.8, Mean Helen uscular Hemoglobin Concent 33.1, Red Cell Distribution Width 13.7, Platelet Count 239, Mean Platelet Volume 7.6, Neutrophils (%) (Auto) , Lymphocytes (%) (Auto) , Monocytes (%) (Auto) , Eosinophils (%) (Auto) , Basophils (%) (Auto) , Differential Total Cells Counted 100, Neutrophils % (Manual) 84H, Lymphocytes % (Manual) 10L, Monocytes % (Manual) 6, Eosinophils % (Manual) 0, Basophils % (Manual) 0, Band Neutrophils 0, Platelet Estimate Adequate, Platelet Morphology Normal, Red Blood Cell Morphology Normal, Prothrombin Time 11.4, Prothromb Time International Ratio 1.0, Activated Partial Thromboplast Time 28, Sodium Level 139, Potassium Level 2.7*L, Chloride Level 102, Carbon Dioxide Level 27, Anion Gap 9, Blood Urea Nitrogen 23H, Creatinine 1.7H, Estimat Glomerular Filtration Rate 50.7, Glucose Level 122H, Calcium Level 9.1, Total Bilirubin 0.4, Aspartate Amino Transf (AST/SGOT) 24, Alanine Aminotransferase (ALT/SGPT) 33, Alkaline Phosphatase 96, Total Creatine Kinase 187, Troponin I 0.000, Total Protein 7.8, Albumin 3.7, Globulin 4.1, Albumin/Globulin Ratio 0.9L, Salicylates Level 1.3L, Acetaminophen Level < 2L, Serum Alcohol < 3 12/06/19 16:20: Urine Color Pale yellow, Urine Appearance Clear, Urine pH 6, Urine Specific [place] 1.010, Urine Protein Negative, Urine Glucose (UA) Negative, Urine Ketones Negative, Urine Blood Negative, Urine Nitrite Negative, Urine Bilirubin Negative, Urine Urobilinogen Normal, Urine Leukocyte Esterase Negative, Urine Potassium Timed 55, Urine Opiates Screen Negative, Urine Barbiturates Screen Negative, Phencyclidine (PCP) Screen Negative, Urine Amphetamines Screen Negative, Urine Benzodiazepines Screen Negative, Urine Cocaine Screen Negative, Urine Marijuana (THC) Screen Negative 12/07/19 05:30: White Blood Count 8.2, Red Blood Count 4.74, Hemoglobin 13.8L, Hematocrit 40.8L, Mean Corpuscular Volume 86, Mean Corpuscular Hemoglobin 29.1, Mean Corpuscular Hemoglobin Concent 33.7, Red Cell Distribution Width 13.2, Platelet Count 247, Mean Platelet Volume 6.3L, Neutrophils (%) (Auto) 74.4, Lymphocytes (%) (Auto) 12.9L, Monocytes (%) (Auto) 8.8, Eosinophils (%) (Auto) 1.0, Basophils (%) (Auto) 2.9H, Sodium Level 141, Potassium Level 2.5*L, Chloride Level 103, Carbon Dioxide Level 27, Anion Gap 11, Blood Urea Nitrogen 16, Creatinine 1.6H, Estimat Glomerular Filtration Rate 54.3, Glucose Level 93, Calcium Level 8.6, Phosphorus Level 1.9L, Magnesium Level 1.9, Vitamin B1 Level [Pending], Vitamin B12 Level 781, Vitamin D 25-Hydroxy [Pending], 25-Hydroxy Vitamin D2 [Pending], 25-Hydroxy Vitamin D3 [Pending], Thyroid Stimulating Hormone (TSH) 0.917 Height (Feet): 6 Height (Inches): 0.00 Weight (Pounds): 200 General Appearance: no apparent distress, confused, other - AOx1 EENT: PERRL/EOMI, normal ENT inspection Neck: normal alignment, supple, normal inspection Cardiovascular: normal rate, regular rhythm, regularly irregular Respiratory/Chest: lungs clear, normal breath sounds, no respiratory distress Abdomen: normal bowel sounds, non tender, soft Extremities: normal range of motion Edema: no edema noted Arm (L), no edema noted Arm (R), no edema noted Leg (L), no edema noted Leg (R), no edema noted Pedal (L), no edema noted Pedal (R), no edema noted Generalized Neurologic: lead javascript developer II-XII grossly normal, disoriented Assessment/Plan Assessment/Plan: Mr. Abdi is a 59-year-old male with a past medical history of schizophrenia, COPD, hypertension, CKD, hypertension who presented after being found down at a psych facility. # Acute encephalopathy likely to 2/2 to toxic metabolic versus infectious versus medication noncompliance # JANN on CKD 2/2 prerenal azotemia versus ATN # Hypokalemia # Leukocytosis # History of schizophrenia # Prolong QT syndrome #History of COPD # History of syncope secondary to heat exhaustion # Essential hypertension # Vitamin D deficiency P: - Hemodynamically stable - saturating well on room air, keep O2 sat > 92% - DuoNebs as needed - EKG reviewed showed prolong cQTC 544, nsr, withou acute ST changes or intraventricular/conduction abnormalities - hold prolonging qt agents - U tox, ethanol negative - IVF - urine studies negative, urine potassium normal - will d/c home hctz given persistent hx of hypokalemia - potassium repletion - Monitor renal function - f/u renal US - Consult psychiatry, Recs appreciated - defer psych meds to psych - CM Code: Full GI: None Fluids: 125 cc 1/2 NS + 20 meq KCL Diet: Full DVT PP X: Heparin 5000 units twice daily Dispo: Pending AMS work-up and psych evaluation likely back to psych facility Time spent on this encounter was 35 minutes which included 21 minutes of counseling and care coordination. I discussed with the nurse at bedside and Dr. Fairchild. Time of note may not reflect time patient was seen. Tyson Maldonado D.O Dec 07, 2019 08:38
[2019-12-07] MEDS: 1/2NS w/KCl 20mEq 1000ml 1,000 ML IV SCH ×2 (09:14→16:00)
[2019-12-07] MEDS: Heparin 5000 units/ml inj SUBQ SCH ×2 (09:15→21:52)
--- NOTE | 2019-12-07 10:09 | NUR ---
CASE MANAGEMENT: REVIEW 59 YEAR OLD MALE BIBA FROM [facility] CC: AMS SI: ACUTE ENCEPHALOPATHY T 97.1 HR 71 RR 18 BP 119/77 SAT 96% ROOM AIR H/H 13.8/40.8 K 2.5 CR 1.6 IS: NS IVF @ 125ML/HR HEPARIN SUBQ Q12HR PHOSPHA 250 PO X1 K-DUR 60MEQ PO X1 WOUND CARE PATIENT ADMITTED TO TELEMETRY UNIT 12/06/2019 DCP: PATIENT IS FROM [facility]
--- NOTE | 2019-12-07 11:17 | NUR ---
NURSE NOTES: Skin/wound assessment:Patient presents with Bilateral heels very dry thick cracked skin nothing open or draining. Optifoam applied for preventative measures .Patient is alert and ambulates .
--- NOTE | 2019-12-07 11:35 | NUR ---
NURSES NOTES: Pt got out of bed to use bathroom and pulled IV out. Will restart another.
--- NOTE | 2019-12-07 11:40 | NUR ---
NURSES NOTES: IV started on LH 22G flushed and patent.
[2019-12-07 12:00] VITALS: BP 120/77
--- NOTE | 2019-12-07 12:45 | NUR ---
NURSES NOTES: Pt got out bed and pulled IV out from . Reminded and educated pt to use call light when he needs to use the bathroom. Will restart another IV site.
--- NOTE | 2019-12-07 12:50 | NUR ---
UNDERCOAT SPRAYER NOTE SW met w/ pt to screen suicide, abuse/neglect. PT is from [facility]. Pt appears as A&O 2-3x. Pt admits having a recent fall. Pt reports he did not have fall in the past. Pt shares he was ambulatory w/o DME in the past. However, pt reports a cane or walker may be helpful. Pt receives SSI and the payee is the facility. Pt has two minor children (17 y/o and the younger) w/ their mother. PT reports having no siblings and no emergency contact. PT denies having mental health issue. PT admits tobacco use and a social ETOH drinker. Pt also denies other substance abuse. PT denies being suicidal, abused or neglected. Pt does not share any renal social worker concern/needs at this time. SW to F/U as needed.
--- NOTE | 2019-12-07 13:20 | NUR ---
NURSES NOTES: IV started on LFA 22G intact and patent.
--- NOTE | 2019-12-07 14:32 | Diagnostic Imaging Report ---
Indication: Acute renal failure Technique: Grayscale and duplex images of the kidneys, retroperitoneum, and bladder were obtained. Comparison: No comparison sonograms. Reference made to chest CT 12/06/2019 Findings: Right kidney measures 8.6 cm in length. Left kidney measures 9.4 cm in length. Both kidneys demonstrate normal echogenicity. No hydronephrosis. Both kidneys demonstrate calyceal calculi. Left kidney demonstrates a cluster of calculi, corresponding to findings reported on recent chest CT, not appearing to be associated with any mass. Both kidneys demonstrate cysts. Normal inferior vena cava. Bladder demonstrates a postvoid residual volume of 127 mL. Impression: Large bladder postvoid residual, 127 mL Negative for hydronephrosis Bilateral nonobstructive calyceal calculi, including cluster corresponding to findings reported on recent CT of the chest. No definite solid mass demonstrated Bilateral renal cysts.
--- NOTE | 2019-12-07 15:05 | NUR ---
INSURANCE CLINICALS/REVIEW FAXED TO DEXTER ESPINOZA P:[phone] F:[phone]
[2019-12-07 16:00] VITALS: BP 108/71
--- NOTE | 2019-12-07 19:10 | NUR ---
NURSE NOTES: Received report from Martine FERNÁNDEZ. Pt in bed awake, alert/ oriented x2, able to make needs known. No resp distress noted. clinical research monitor in place. IV 22G in place & patent on left hand infusing 1/2 NS with 20 meq KCL, no s/s infiltration noted. Bed in low position & locked, side rails up x3. Bed alarm on. Call light with in reach. Explained to pt use call light when getting in & out of bed.
--- NOTE | 2019-12-07 19:15 | NUR ---
NURSE HAND-OFF REPORT: Important Events on Shift: IV fluids changed to 1/2 NS with K20meq @ 125 Patient Status: Stable Diet: Regular Pending Orders: Pending Results/Labs: Pending MD notification: Latest Vital Signs: Temperature 98.0 , Pulse 82 , B/P 108 /71 , Respiratory Rate 18 , O2 SAT 98 , Room Air, O2 Flow Rate 15.0 . Vital Sign Comment: EKG Rhythm: Sinus Rhythm Rhythm change?: N MD Notified?: - MD Response: Latest Causey Fall Score: 60 Fall Risk: High Risk Safety Measures: Call light Within Reach, Bed Alarm Zone 1, Side Rails Side Rails x2, Bed position Low and Locked. Fall Precautions: Yellow Socks Yellow Gown Patient Fall Education Report given to Dina.
[2019-12-07 20:00] VITALS: BP 104/70
[2019-12-08] VITALS: BP 143/90
--- NOTE | 2019-12-08 00:15 | Consultation ---
DATE OF CONSULTATION: 12/07/2019 CONSULTING PHYSICIAN: Kirstin Fairchild MD. HISTORY OF PRESENT ILLNESS: This is a 59-year-old male with a history of schizophrenia who has been admitted due to altered mental status. The [facility] record system was down tonight, therefore I was not able to review the chart. During the evaluation, patient was somewhat disoriented and was mumbling to many questions. He denied any suicidal or homicidal ideation. He was unable to provide any meaningful history and mostly answering yes or no or mumble. PAST PSYCHIATRIC HISTORY: He has a history of cognitive schizophrenia. He was unable to answer whether he had psychiatric hospitalization or suicide attempt. He was unable to give history about his medication that he has been taking or following up with a psychiatrist. PAST MEDICAL HISTORY: Again, he is a poor historian. I do not have access to the medical record, but he has been presenting with altered mental status in the past. ALLERGIES: We will review the chart. SUBSTANCE ABUSE HISTORY: He denied any illicit drug use or alcohol. MENTAL STATUS EXAMINATION: Patient is awake, knew where he was, and his name. Mood was dysphoric. Affect is blunted. Thought process, there is a paucity of thought content. Thought content, no suicidal or homicidal ideation. Cognition is impaired. Insight and judgment is impaired. ASSESSMENT: Delphia I Acute encephalopathy. Schizophrenia. Delphia II Deferred. Delphia III Altered mental status. Delphia IV Low. Delphia V 40. PLAN: 1. We will reassess tomorrow. He may benefit from antipsychotics. 2. Patient is not an imminent danger to self or others. Kirstin Fairchild M.D. DR: GIANNI JOB#: [id number] CC:
[2019-12-08] MEDS: 1/2NS w/KCl 20mEq 1000ml 1,000 ML IV SCH ×2 (01:06→08:45)
[2019-12-08 04:00] VITALS: BP 114/69
[2019-12-08 07:02] LABS: HEMATOCRIT 37.8 % (42.0-52.0); HEMOGLOBIN 12.9 G/DL (14.2-18.0); LYMPHOCYTES % (AUTO) 20.5 % (20.0-45.0); MEAN CORPUSCULAR VOLUME 86 FL (80-99); MONOCYTES % (AUTO) 9.7 % (1.0-10.0); NEUTROPHILS % (AUTO) 64.9 % (45.0-75.0); PLATELET COUNT 226 K/UL (150-450); RED BLOOD COUNT 4.38 M/UL (4.70-6.10); RED CELL DISTRIBUTION WIDTH 13.1 % (11.6-14.8); WHITE BLOOD COUNT 6.3 K/UL (4.8-10.8)
--- NOTE | 2019-12-08 07:17 | NUR ---
NURSE HAND-OFF REPORT: Important Events on Shift:NOTED ATTEMPTING TO CLIMB OUT OF BED MULTIPLE TIMES Patient Status: STABLE Diet: REGULAR Pending Orders: [] Pending Results/Labs:[] Pending MD notification:[] Latest Vital Signs: Temperature 98.5 , Pulse 82 , B/P 114 /69 , Respiratory Rate 16 , O2 SAT 97 , Room Air, O2 Flow Rate 15.0 . Vital Sign Comment: [] EKG Rhythm: Sinus Rhythm Rhythm change?: N MD Notified?: - MD Response: Latest Causey Fall Score: 60 Fall Risk: High Risk Safety Measures: Call light Within Reach, Bed Alarm Zone 1, Side Rails Side Rails x2, Bed position Low and Locked. Fall Precautions: Yellow Socks Yellow Gown Patient Fall Education Report given to JOLENE SINGH.
--- NOTE | 2019-12-08 07:40 | NUR ---
NURSE NOTES: RECEIVES PATIENT A/A/OX2, APPEARED FORGETFUL. ABLE TO AMBULATE TO THE BATHROOM WITH MINIMAL ASSISTANCE. ABLE TO FEED SELF. EXCELLENT APPETITE. NO ACUTE CARDIO-RESP DISTRESS NOTED. RECEIVED PATIENT WITH NO IV ACCESS. PER NOC NURSE. PATIENT HAD PULLED OUT IV HEPLOCK. WILL REINSERT IV TODAY. ON RA. KEPT BED IN THE LOWEST POSITION. SIDERAILS ARE UPX3. BRAKES AND LOCK ENGAGED. CALL LIGHT IS WITHIN REACH. WILL CONT TO MONITOR.
[2019-12-08 08:00] VITALS: BP 114/82
[2019-12-08 08:00] LABS: ANION GAP 7 mmol/L (5-15); BLOOD UREA NITROGEN 10 mg/dL (7-18); CARBON DIOXIDE 26 MMOL/L (21-32); CHLORIDE 105 MMOL/L (98-107); CREATININE 1.4 MG/DL (0.55-1.30); PHOSPHORUS 2.5 MG/DL (2.5-4.9); POTASSIUM 2.8 MMOL/L (3.5-5.1); SODIUM 138 MMOL/L (136-145)
[2019-12-08] MEDS: Heparin 5000 units/ml inj SUBQ SCH ×2 (08:46→20:03)
[2019-12-08] MEDS ORDERED: Magnesium Oxide 400mg tab ORAL SCH (09:15)
--- NOTE | 2019-12-08 09:32 | General Progress Note ---
Subjective ROS Limited/Unobtainable: Yes - AO x1, however able to answer some of review of systems appropriately Constitutional: Denies: no symptoms, chills, diaphoresis, fever, malaise, weakness, other HEENT: Denies: no symptoms, eye pain, blurred vision, tearing, double vision, ear pain, ear discharge, nose pain, nose congestion, throat pain, throat swelling, mouth pain, mouth swelling, other Cardiovascular: Denies: no symptoms, chest pain, edema, irregular heart rate, lightheadedness, palpitations, syncope, other Respiratory: Denies: no symptoms, cough, orthopnea, shortness of breath, SOB with excertion, SOB at rest, sputum, stridor, wheezing, other Gastrointestinal/Abdominal: Denies: no symptoms, abdomen distended, abdominal pain, black stools, tarry stools, blood in stool, constipated, diarrhea, difficulty swallowing, nausea, poor appetite, poor fluid intake, rectal bleeding, vomiting, other Genitourinary: Denies: no symptoms, burning, discharge, frequency, flank pain, hematuria, incontinence, pain, urgency, other Neurologic/Psychiatric: Denies: no symptoms, anxiety, depressed, emotional problems, headache, numbness, paresthesia, pre-existing deficit, seizure, tingling, tremors, weakness, other Endocrine: Denies: no symptoms, excessive sweating, flushing, intolerance to cold, intolerance to heat, increased hunger, increased thirst, increased urine, unexplained weight gain, unexplained weight loss, other Hematologic/Lymphatic: Denies: no symptoms, anemia, easy bleeding, easy bruising, other Allergies: Coded Allergies: No Known Allergies (Unverified , 11/26/19) Subjective No acute events overnight. VSS. Patient more alert and awake this morning in no acute distress. A 01. Able to follow simple commands. Tolerating diet. Still pending official psychiatry consult. Hypokalemia persists. Objective Last 24 Hour Vital Signs Date Time Temp Pulse Resp B/P (MAP) Pulse Ox O2 Delivery O2 Flow Rate FiO2 12/08/19 09:14 Room Air 12/08/19 08:43 80 12/08/19 08:00 97.7 83 18 114/82 (93) 99 12/08/19 06:00 82 12/08/19 04:00 98.5 81 16 114/69 (84) 97 12/08/19 00:00 98.0 69 18 143/90 (107) 96 12/08/19 00:00 76 12/07/19 21:00 Room Air 12/07/19 20:00 87 12/07/19 20:00 100.8 81 18 104/70 (81) 95 12/07/19 16:00 98.0 82 18 108/71 (83) 98 12/07/19 16:00 76 12/07/19 12:00 97.7 78 20 120/77 (91) 99 12/07/19 12:00 71 Intake and Output 12/07/19 12/08/19 19:00 07:00 Intake Total 360 ml 300 ml Balance 360 ml 300 ml Intake Oral 360 ml 300 ml # Voids 3 3 Laboratory Tests 12/07/19 15:30: Potassium Level 3.1L 12/08/19 05:15: Potassium Level 2.8L, White Blood Count 6.3, Red Blood Count 4.38L, Hemoglobin 12.9L, Hematocrit 37.8L, Mean Corpuscular Volume 86, Mean Corpuscular Hemoglobin 29.6, Mean Corpuscular Hemoglobin Concent 34.3, Red Cell Distribution Width 13.1, Platelet Count 226, Mean Platelet Volume 6.7, Neutrophils (%) (Auto) 64.9, Lymphocytes (%) (Auto) 20.5, Monocytes (%) (Auto) 9.7, Eosinophils (%) (Auto) 4.0H, Basophils (%) (Auto) 1.0, Sodium Level 138, Chloride Level 105, Carbon Dioxide Level 26, Anion Gap 7, Blood Urea Nitrogen 10, Creatinine 1.4H, Estimat Glomerular Filtration Rate > 60, Glucose Level 78, Calcium Level 8.0L, Phosphorus Level 2.5, Magnesium Level 1.8 Height (Feet): 6 Height (Inches): 0.00 Weight (Pounds): 200 General Appearance: no apparent distress, confused, other - AOx1 EENT: normal ENT inspection Neck: non-tender, supple Cardiovascular: normal rate, regular rhythm, no JVD Respiratory/Chest: lungs clear, normal breath sounds, no respiratory distress Abdomen: normal bowel sounds, non tender, soft Extremities: normal range of motion Edema: no edema noted Arm (L), no edema noted Arm (R), no edema noted Leg (L), no edema noted Leg (R), no edema noted Pedal (L), no edema noted Pedal (R), no edema noted Generalized Neurologic: chute tapper II-XII grossly normal, alert, disoriented Assessment/Plan Assessment/Plan: Improving Mr. Abdi is a 59-year-old male with a past medical history of schizophrenia, COPD, hypertension, CKD, hypertension who presented after being found down at a psych facility. # Acute encephalopathy likely to 2/2 to toxic metabolic versus infectious versus medication noncompliance -improving # JANN on CKD 2/2 prerenal azotemia versus ATN-improving- # Hypokalemia-persists # Leukocytosis # History of schizophrenia # Prolong QT syndrome #History of COPD # History of syncope secondary to heat exhaustion # Essential hypertension # Vitamin D deficiency P: - Hemodynamically stable - saturating well on room air, keep O2 sat > 92% - DuoNebs as needed - EKG reviewed showed prolong cQTC 544, nsr, withou acute ST changes or intraventricular/conduction abnormalities - hold prolonging qt agents - U tox, ethanol negative - IVF - urine studies negative, urine potassium normal - will d/c home hctz given persistent hx of hypokalemia -Hypokalemia persists we will give both oral and IV supplementation today reviewed no chronic changes, no hydronephrosis, - Monitor renal function - renal ultrasound reviewed, discharged back to [facility] once cleared by psychiatry and stable hypokalemia nonobstructing calculi without hydronephrosis or hydroureter, no chronic renal changes - Consult psychiatry, Recs appreciated - defer psych meds to psych - CM Code: Full GI: None Fluids: 50 cc 1/2 NS + 20 meq KCL Diet: Full DVT PP X: Heparin 5000 units twice daily Dispo: Discharged back to [facility] once cleared by psychiatry and hypokalemia resolves Time spent on this encounter was 31 minutes which included 20 minutes of counseling and care coordination. I discussed with the nurse at bedside and Dr. Fairchild. Time of note may not reflect time patient was seen. Tyson Maldonado D.O Dec 08, 2019 09:32
--- NOTE | 2019-12-08 10:25 | NUR ---
*-*DISCHARGE PLANNING*-* DISCHARGE PLAN IS FOR PATIENT TO RETURN HOME TO: [facility]/ [facility] P: [phone] ROOM# [id number]
--- NOTE | 2019-12-08 10:31 | NUR ---
*-*DISCHARGE PLANNING*-* DISCHARGE PLAN IS FOR PATIENT TO RETURN HOME TO: [facility] P: [phone] ROOM# [id number] ~~~~IF CLEARED BY ADELSO AND POTASSIUM IMPROVES~~~
--- NOTE | 2019-12-08 11:28 | NUR ---
NURSE NOTES: DR WRIGHT IS AWARE OF TODAY'S LABS AND NEW ORDER PLACED AND ADMINISTERED. WILL CONT TO MONITOR.
[2019-12-08 12:00] VITALS: BP 131/81
--- NOTE | 2019-12-08 13:42 | NUR ---
NURSE NOTES: PATIENT PULLED OUT IV ACCESS FOR THE SECOND TIME. CALLED AND SPOKE WITH DR WRIGHT AND CONVEYED THE SAID INCIDENT. NEW ORDER OBTAINED. WILL CONT TO MONITOR.
[2019-12-08 16:04] VITALS: BP 131/83
[2019-12-08] MEDS ORDERED: QUETIAPINE FUM300 MG ORAL (18:33)
[2019-12-08] MEDS ORDERED: CHLORPROMAZINE100 MG PO (18:33)
[2019-12-08] MEDS ORDERED: VITAMIN D250 MC1 PO (18:33)
[2019-12-08] MEDS ORDERED: MIRTAZAPINE15 M3 ORAL (18:33)
--- NOTE | 2019-12-08 18:53 | NUR ---
NURSE HAND-OFF REPORT: Important Events on Shift:[RESINSERTION OF IV ACCESS, PATIENT PULLED OUT AND NOT ABLE TO FOLLOW AT THAT SENSE, REPLACED K+, SKIN ASSESSED. ] Patient Status: [STABLE] Diet: [REGULAR] Pending Orders: [TRANSFER TO MED-SURG; AWAITING FOR PSYCH CLEARANCE] Pending Results/Labs:[] Pending MD notification:[] Latest Vital Signs: Temperature 98.4 , Pulse 80 , B/P 131 /83 , Respiratory Rate 17 , O2 SAT 98 , Room Air, O2 Flow Rate 15.0 . Vital Sign Comment: [] EKG Rhythm: Sinus Rhythm Rhythm change?: N MD Notified?: - MD Response: Latest Causey Fall Score: 60 Fall Risk: High Risk Safety Measures: Call light Within Reach, Bed Alarm Zone 2, Side Rails Side Rails x3, Bed position Low and Locked. Fall Precautions: Yellow Socks Yellow Gown Patient Fall Education Report given to [STEVE].
--- NOTE | 2019-12-08 19:00 | NUR ---
NURSE NOTES: Pt. received from [facility]. Pt. AAOx2 to name and purpose, pt. breathing even and unlabored on room air, no indications of respiratory distress, no complaints of pain at this time. Pt. without IV access, endorsed Dr. Maldonado aware and no orders to reinsert. Pt. with active transfer order to med-surg, charge nurse aware. Bed low and locked, side rails x2 up, bed alarm active, and call light in reach. Will continue with plan of care.
[2019-12-08 20:00] VITALS: BP 118/74
[2019-12-09] VITALS: BP 109/66
--- NOTE | 2019-12-09 01:25 | NUR ---
NURSE NOTES: Pt. transferred to med surg, report given to Otis, pt. stable. Pt. sleeping and belongings sent.
--- NOTE | 2019-12-09 01:35 | NUR ---
CHARGE NURSE: Report given to JOLENE Vu. Pt is awake and verbal. Pt is high fall risk.Pt instructed to call for assistance before getting out of bed.
--- NOTE | 2019-12-09 01:36 | NUR ---
NURSE NOTES: Patient transferred from Telemetry unit. Report from JOLENE Berg. Patient is in bed, awake and able to make needs known. On room air with no signs of distress or SOB. No IV access - Dr. Maldonado aware; OK with no IV per order. Belongings accounted for. Will take WCP and upload. Bed locked and in lowest position. Bed alarm activated; reminded patient to call for assistance when getting out of bed. Will continue plan of care.
[2019-12-09 04:00] VITALS: BP 126/74
--- NOTE | 2019-12-09 06:32 | NUR ---
NURSE HAND-OFF: Important Events on Shift: Transfer from Telemetry unit Patient Status: Stable Diet: Reg Pending Orders: N/A Pending Results/Labs: Mag, BMP Pending MD notification: N/A Latest Vital Signs: Temperature 97.0 , Pulse 93 , B/P 126 /74 , Respiratory Rate 18 , O2 SAT 96 , Room Air, O2 Flow Rate 15.0 . Vital Sign Comment: Latest Causey Fall Score: 60 Fall Risk: High Risk Safety Measures: Call light Within Reach, Bed Alarm Zone 2, Side Rails Side Rails x3, Bed position Low and Locked. Fall Precautions: Yellow Socks Yellow Gown Patient Fall Education Addendum: 12/09/19 at 0720 by GRACIELA HENSLEY RN Report given to JOLENE Pantoja
[2019-12-09 07:30] LABS: ANION GAP 8 mmol/L (5-15); BLOOD UREA NITROGEN 9 mg/dL (7-18); CALCIUM 8.6 MG/DL (8.5-10.1); CARBON DIOXIDE 26 MMOL/L (21-32); CHLORIDE 106 MMOL/L (98-107); CREATININE 1.3 MG/DL (0.55-1.30); POTASSIUM 3.7 MMOL/L (3.5-5.1); SODIUM 140 MMOL/L (136-145)
[2019-12-09 08:00] VITALS: BP 136/95
--- NOTE | 2019-12-09 08:20 | NUR ---
NURSE NOTES: Patient alert x2, confused; on room air, no sing of distress and shortness of breath; no sing of chest pain; NO IV Access, MD aware; side rials up x2, breaks engaged, bed at lowest position, bed alarm on; call light within reach; Urinal within reach; will keep monitoring. patient instructed to call for help;
--- NOTE | 2019-12-09 09:00 | NUR ---
NURSE NOTES: Per Dr. Maldonado's request,lead project manager left message to Dr. Fairchild if patient is clear for discharge and needs to continue any psych meds upon discharge. Awaiting for return call.
[2019-12-09] MEDS: Heparin 5000 units/ml inj SUBQ SCH ×2 (09:24→20:49)
--- NOTE | 2019-12-09 09:55 | General Progress Note ---
Subjective ROS Limited/Unobtainable: Yes - Aox1, but able to answer some questions appropriately Constitutional: Denies: no symptoms, chills, diaphoresis, fever, malaise, weakness, other HEENT: Denies: no symptoms, eye pain, blurred vision, tearing, double vision, ear pain, ear discharge, nose pain, nose congestion, throat pain, throat swelling, mouth pain, mouth swelling, other Cardiovascular: Denies: no symptoms, chest pain, edema, irregular heart rate, lightheadedness, palpitations, syncope, other Respiratory: Denies: no symptoms, cough, orthopnea, shortness of breath, SOB with excertion, SOB at rest, sputum, stridor, wheezing, other Gastrointestinal/Abdominal: Denies: no symptoms, abdomen distended, abdominal pain, black stools, tarry stools, blood in stool, constipated, diarrhea, difficulty swallowing, nausea, poor appetite, poor fluid intake, rectal bleeding, vomiting, other Genitourinary: Denies: no symptoms, burning, discharge, frequency, flank pain, hematuria, incontinence, pain, urgency, other Neurologic/Psychiatric: Denies: no symptoms, anxiety, depressed, emotional problems, headache, numbness, paresthesia, pre-existing deficit, seizure, tingling, tremors, weakness, other Endocrine: Denies: no symptoms, excessive sweating, flushing, intolerance to cold, intolerance to heat, increased hunger, increased thirst, increased urine, unexplained weight gain, unexplained weight loss, other Hematologic/Lymphatic: Denies: no symptoms, anemia, easy bleeding, easy bruising, other Allergies: Coded Allergies: No Known Allergies (Unverified , 11/26/19) Subjective No acute events overnight. VSS. Patient still AOx1. Not fully evaluated by psych yet. Awaiting those recs. Hypokalemia resolved. Objective Last 24 Hour Vital Signs Date Time Temp Pulse Resp B/P (MAP) Pulse Ox O2 Delivery O2 Flow Rate FiO2 12/09/19 08:00 97.0 93 18 136/95 (109) 98 12/09/19 04:00 97.0 93 18 126/74 (91) 96 12/09/19 00:00 98.9 60 16 109/66 (80) 99 12/08/19 21:00 Room Air 12/08/19 20:00 80 12/08/19 20:00 97.8 69 18 118/74 (89) 96 12/08/19 16:04 98.4 80 17 131/83 (99) 98 12/08/19 16:00 82 12/08/19 12:26 90 12/08/19 12:00 96.9 91 19 131/81 (98) 97 Intake and Output 12/08/19 12/09/19 19:00 07:00 Intake Total 1050 ml 100 ml Balance 1050 ml 100 ml Intake Oral 100 ml IV Total 250 ml Other 800 ml Laboratory Tests 12/08/19 16:15: Potassium Level 3.7 12/09/19 06:45: Potassium Level 3.7, Sodium Level 140, Chloride Level 106, Carbon Dioxide Level 26, Anion Gap 8, Blood Urea Nitrogen 9, Creatinine 1.3, Estimat Glomerular Filtration Rate > 60, Glucose Level 93, Calcium Level 8.6, Magnesium Level 2.0 Height (Feet): 6 Height (Inches): 0.00 Weight (Pounds): 200 General Appearance: no apparent distress, other - AOX1 EENT: PERRL/EOMI Neck: non-tender, normal alignment Cardiovascular: normal rate, regular rhythm, no JVD Respiratory/Chest: lungs clear, normal breath sounds, respiratory distress Abdomen: normal bowel sounds, non tender, soft Extremities: normal range of motion Edema: no edema noted Arm (L), no edema noted Arm (R), no edema noted Leg (L), no edema noted Leg (R), no edema noted Pedal (L), no edema noted Pedal (R), no edema noted Generalized Neurologic: internal consultant II-XII grossly normal, disoriented, other - AOx1 Assessment/Plan Assessment/Plan: Improving Mr. Abdi is a 59-year-old male with a past medical history of schizophrenia, COPD, hypertension, CKD, hypertension who presented after being found down at a psych facility. # Acute encephalopathy likely to 2/2 likely medication noncompliance -improving # JANN on CKD 2/2 prerenal azotemia versus ATN- resolved # Hypokalemia-resolved # Leukocytosis - resolved # History of schizophrenia # Prolong QT syndrome #History of COPD # History of syncope secondary to heat exhaustion # Essential hypertension # Vitamin D deficiency P: - Hemodynamically stable - saturating well on room air, keep O2 sat > 92% - DuoNebs as needed - EKG reviewed showed prolong cQTC 544, nsr, withou acute ST changes or intraventricular/conduction abnormalities - hold prolonging qt agents - will d/c home hctz given persistent hx of hypokalemia -discussed with pharmacy over the phone that patients pharmacy on file is not correct and likely patient was not filling his prescriptions because of this, pharmacy has stated they will update his pharmacy to the correct one - Consult psychiatry, Recs appreciated - defer psych meds to psych - CM Code: Full GI: None Fluids: none Diet: Full DVT PP X: Heparin 5000 units twice daily Dispo: d/c once cleared by psychiatry, medically stable for discharge Time spent on this encounter was 35 minutes which included 23 minutes of counseling and care coordination. I discussed with the nurse at bedside and Dr. Fairchild. Time of note may not reflect time patient was seen. Tyson Maldonado D.O Dec 09, 2019 09:55
--- NOTE | 2019-12-09 11:33 | NUR ---
NURSE NOTES: Received call from Dr. Fairchild, per Dr. Fairchild,patient is clear for discharge but patient's outpatient Psychiatrist needs to decide about meds. RN made Dr. Maldonado aware.
--- NOTE | 2019-12-09 11:54 | Discharge Instructions ---
Discharge Instructions Discharge Instructions Services at Discharge: other - assisted living Diet: regular Resume Normal Activity?: Yes Activity: light activity, as tolerated Follow Up Orders Please assist patient with setting up his outpatient psychiatry appointment in 1-2 days; per Dr. Alonso patient likely altered due to combination of psych meds. So psych meds have been held here and will defer to his outpatient psych physician to re-evaluate. For Congestive Heart Failure Reminder Report to your physician any weight gain of 5 pounds or more in one week. Tyson Maldonado D.O Dec 09, 2019 11:54
[2019-12-09 12:00] VITALS: BP 121/87
--- NOTE | 2019-12-09 12:08 | Discharge Summary ---
Discharge Summary Hospital Course Date of Admission Dec 06, 2019 at 16:52 Date of Discharge Admitting Diagnosis ALTERD MENTAL STATUS HPI Rigoberto Kaur is a 59 year old male who was admitted on Dec 06, 2019 at 16:52 for Altered Mental Status Hospital Course Mr. Abdi is a 59-year-old male with a past medical history of schizophrenia, COPD, hypertension, CKD, hypertension who presented after being found down at living facility. Patient was recently admitted for similar presentation likely 2/2 heat exhaustion. On this admission, patient found to have mild JANN with severe hypokalemia. Potassium was repleted and JANN resolved with fluids. I d/c'd his home HCTZ as he has been hypokalemic on multiple hospital admissions. CT head/chest negative. Patient remained hemodynamically stable. His mentation improved over last couple days; however, still confused to as where he is. Dr. Fairchild Psychiatry has evaluated patient and deemed no HI/SI risk or need for inpatient psych placement. Dr. Fairchild has cleared patient for discharge from her stand point and to hold his previous psych meds as she believes that may be the issues. She recommends patient follow up with outpatient psychiatrist for reevaluation of psych meds. Patient is otherwise medically stable for discharge back to [facility] today. # Acute encephalopathy likely to 2/2 likely medication noncompliance vs medication toxicity -improving # JANN on CKD 2/2 prerenal azotemia versus ATN- resolved # Hypokalemia-resolved # Leukocytosis - resolved # History of schizophrenia # Prolong QT syndrome #History of COPD # History of syncope secondary to heat exhaustion # Essential hypertension # Vitamin D deficiency P: - EKG reviewed showed prolong cQTC 544, nsr, withou acute ST changes or intraventricular/conduction abnormalities - hold prolonging qt agents - will d/c home hctz given persistent hx of hypokalemia -discussed with pharmacy over the phone that patients pharmacy on file is not correct and likely patient was not filling his prescriptions because of this, pharmacy has stated they will update his pharmacy to the correct one - restart home amlodipine and metoprolol for BP - per Dr. Fairchild Psychiatry; hold psych meds and have outpatient psychiatrist re-evaluate patient as it may be culprit to patients AMS - please f/u with outpatient psychiatry in 1-2 days - please f/u with PCP within 1 week as well for continued care Time spent on this encounter was 35 minutes which included 23 minutes of counseling and care coordination. I discussed with the nurse at bedside and Dr. Fairchild. Time of note may not reflect time patient was seen. Discharge Discharge Vital Signs Last Vital Signs Date Time Temp Pulse Resp B/P (MAP) Pulse Ox O2 Delivery O2 Flow Rate FiO2 12/09/19 09:00 Room Air 12/09/19 08:00 97.0 93 18 136/95 (109) 98 12/06/19 22:21 15.0 Discharge Disposition Patient was discharged to Discharge Instructions Discharge Instructions Services Upon Discharge: other - assisted living Activity: light activity, as tolerated Tyson Maldonado D.O Dec 09, 2019 12:08
--- NOTE | 2019-12-09 13:50 | NUR ---
DISCHARGE PLANNING CALL MADE TO [facility] [phone] TO CONFIRM BED ASSIGNMENT. S/W [facility]. PER [facility], PHYSICIANS REPORT FOR CC NEEDS TO BE COMPLETED AND RETURNED PRIOR TO ADMISSION. [facility] FAXED THE REQUIRED DOCUMENT TO DEPT. CHARGE NURSE PATRICK FORDE INFORMED
--- NOTE | 2019-12-09 15:31 | NUR ---
NURSE NOTES: drum printer received paper work for Dr. Maldonado for boarding care discharge. Dr. Maldonado was notified and came by to fill out the form. RN faxed the paper work to [facility] C/O Jaylene fax # [phone]. She will call [facility] after reviewing the paper work.
[2019-12-09 16:00] VITALS: BP 133/83
--- NOTE | 2019-12-09 17:20 | NUR ---
NURSE NOTES: RN spoke to Jaylene from [facility]. They are still reviewing the paper work and will call [facility] after reviewing the paper work.
--- NOTE | 2019-12-09 19:20 | NUR ---
HAND-OFF: Report given to JOLENE Flores. Patient on bed, stable at this time;
--- NOTE | 2019-12-09 19:32 | NUR ---
NURSE NOTES: Pt. received from JOLENE Pantoja. Pt. AAOx2, watching TV, breathing even and unlabored on room air, no indications of respiratory distress, no complaints of pain at this time. No IV access, endorsed Dr. Maldonado aware and no orders to reinsert. Educated pt. on staying in bed for safety and use of call light, pt. verbalized understanding. Bed is low and locked, side rails x3 up, bed alarm active, and call light in reach.
[2019-12-09 20:00] VITALS: BP 125/83
--- NOTE | 2019-12-09 22:23 | Psych Consult Progress Note ---
Psychiatry Progress Note Psychiatry Progress Note Medications Current Medications Medications (Trade) Dose Ordered Sig/Efraín Route PRN Reason Start Time Stop Time Status Last Admin Dose Admin Acetaminophen (Tylenol) 650 mg Q4H PRN ORAL Mild Pain (Pain Scale 1-3) 12/06/19 18:45 01/05/20 18:44 Acetaminophen (Tylenol) 650 mg Q4H PRN RECTAL Temp >100.5 12/06/19 18:45 01/05/20 18:44 Albuterol/ Ipratropium (Albuterol/ Ipratropium) 3 ml Q4H PRN HHN Shortness of Breath 12/06/19 18:45 12/11/19 18:44 Bisacodyl (Dulcolax) 10 mg HSPRN PRN RECTAL Constipation 12/06/19 18:45 03/05/20 18:44 Dextrose (Dextrose 50%) 25 ml Q30M PRN IV Hypoglycemia 12/06/19 18:45 03/05/20 18:44 Dextrose (Dextrose 50%) 50 ml Q30M PRN IV Hypoglycemia 12/06/19 18:45 03/05/20 18:44 Heparin Sodium (Porcine) (Heparin 5000 units/ml) 5,000 units EVERY 12 HOURS SUBQ 12/06/19 21:00 01/20/20 20:59 12/09/19 20:49 Polyethylene Glycol (Miralax) 17 gm HSPRN PRN ORAL Constipation 12/06/19 18:45 01/05/20 18:44 Neurological/Psychiatric: Reports: anxiety, depressed; Denies: no symptoms, emotional problems, headache, numbness, paresthesia, pre-existing deficit, seizure, tingling, tremors, weakness, other Allergies: Coded Allergies: No Known Allergies (Unverified , 11/26/19) Objective Data Height (Feet): 6 Height (Inches): 0.00 Weight (Pounds): 200 General Appearance: no apparent distress, alert, confused - self and place, other - AOX1 Appearance: disheveled Behavior Mannerisms: good eye contact Mental Status Exam - Affect: blunted Mental Status Exam - Mood: depressed Speech: clear Mental Status Exam - Thought P: confusion, disorganized Mental Status Exam - Suicidal: not present Assessment/Plan Assessment/Plan: [place] I Acute encephalopathy. Schizophrenia. [place] II Deferred. [place] III Altered mental status. [place] IV Low. [place] V 40. Risperdal 1mg po qhs the pt is not at imminent dts Kirstin Fairchild MD Dec 09, 2019 22:23
[2019-12-10] VITALS: BP 144/93
[2019-12-10 04:00] VITALS: BP 130/86
--- NOTE | 2019-12-10 07:36 | NUR ---
NURSE HAND-OFF: Important Events on Shift:[pt. kept safe ] Patient Status: awake Diet: regular Pending Orders: na Pending Results/Labs:na Pending MD notification:na Latest Vital Signs: Temperature 97.9 , Pulse 97 , B/P 130 /86 , Respiratory Rate 20 , O2 SAT 95 , Room Air, O2 Flow Rate 15.0 . Vital Sign Comment: stable Latest Causey Fall Score: 60 Fall Risk: High Risk Safety Measures: Call light Within Reach, Bed Alarm Zone 2, Side Rails Side Rails x3, Bed position Low and Locked. Fall Precautions: Yellow Socks Yellow Gown Patient Fall Education Report given to JOLENE Hayes.
[2019-12-10 07:37] LABS: ANION GAP 8 mmol/L (5-15); BLOOD UREA NITROGEN 9 mg/dL (7-18); CALCIUM 8.7 MG/DL (8.5-10.1); CARBON DIOXIDE 29 MMOL/L (21-32); CHLORIDE 105 MMOL/L (98-107); CREATININE 1.4 MG/DL (0.55-1.30); SODIUM 141 MMOL/L (136-145)
--- NOTE | 2019-12-10 07:48 | NUR ---
NURSE NOTES: pt is in the bed alert and awake. respiration is even and unlabored. denies any pain and discomfort at this time. no altered mental status noted at this time. pt able to answer questions appropriately. exchanged greetings with pt. no acute distress noted, will follow plan of care. call light within reach.
[2019-12-10 08:00] VITALS: BP 137/94
[2019-12-10] MEDS ORDERED: Tubing IV Secondary IV ONE (08:46)
[2019-12-10] MEDS: Heparin 5000 units/ml inj SUBQ SCH (09:01)
--- NOTE | 2019-12-10 10:49 | NUR ---
RADIO INTERFERENCE INVESTIGATOR NOTES SPOKE WITH KAT FROM [place] TO SEND PT BACK.I REQUESTED IF SHE CAN HAVE THE PTS PRIMARY DOCTOR COMPLETE THE MEDICAL FORMS. KAT AGREED,CLINICALS FAXED TO [phone]. PT TO IN HOME, PRIMARY NURSE MADE AWARE.
--- NOTE | 2019-12-10 11:00 | Discharge Summary ---
Discharge Summary Hospital Course Date of Admission Dec 06, 2019 at 16:52 Date of Discharge Admitting Diagnosis ALTERD MENTAL STATUS HPI Rigoberto Kaur is a 59 year old male who was admitted on Dec 06, 2019 at 16:52 for Altered Mental Status Hospital Course Mr. Abdi is a 59-year-old male with a past medical history of schizophrenia, COPD, hypertension, CKD, hypertension who presented after being found down at living facility. Patient was recently admitted for similar presentation likely 2/2 heat exhaustion. On this admission, patient found to have mild JANN with severe hypokalemia. Potassium was repleted and JANN resolved with fluids. I d/c'd his home HCTZ as he has been hypokalemic on multiple hospital admissions. CT head/chest negative. Patient remained hemodynamically stable. His mentation improved over last couple days; however, still confused to as where he is. Dr. Fairchild Psychiatry has evaluated patient and deemed no HI/SI risk or need for inpatient psych placement. Dr. Fairchild has cleared patient for discharge from her stand point and to hold his previous psych meds as she believes that may be the issues. She recommends patient follow up with outpatient psychiatrist for reevaluation of psych meds; she started risperidone 2mg po qhs. Patient is otherwise medically stable for discharge back to [facility] today. # Acute encephalopathy likely to 2/2 likely medication noncompliance vs medication toxicity -improving # JANN on CKD 2/2 prerenal azotemia versus ATN- resolved # Hypokalemia-resolved # Leukocytosis - resolved # History of schizophrenia # Prolong QT syndrome #History of COPD # History of syncope secondary to heat exhaustion # Essential hypertension # Vitamin D deficiency P: - EKG reviewed showed prolong cQTC 544, nsr, withou acute ST changes or intraventricular/conduction abnormalities - hold prolonging qt agents - will d/c home hctz given persistent hx of hypokalemia -discussed with pharmacy over the phone that patients pharmacy on file is not correct and likely patient was not filling his prescriptions because of this, pharmacy has stated they will update his pharmacy to the correct one - restart home amlodipine and metoprolol for BP - per Dr. Fairchild Psychiatry; have outpatient psychiatrist re-evaluate patient as it may be culprit to patients AMS; started patient on risperidone 2mg qhs - please f/u with outpatient psychiatry in 1-2 days - please f/u with PCP within 1 week as well for continued care Time spent on this encounter was 31 minutes which included 21 minutes of counseling and care coordination. I discussed with the nurse at bedside and Dr. Fairchild. Time of note may not reflect time patient was seen. Discharge Discharge Vital Signs Last Vital Signs Date Time Temp Pulse Resp B/P (MAP) Pulse Ox O2 Delivery O2 Flow Rate FiO2 12/10/19 09:00 Room Air 12/10/19 08:00 98.1 109 20 137/94 (108) 96 12/06/19 22:21 15.0 Discharge Disposition Patient was discharged to Discharge Instructions Discharge Instructions Services Upon Discharge: other - assisted living Activity: light activity, as tolerated Tyson Maldonado D.O Dec 10, 2019 11:00
[2019-12-10] MEDS ORDERED: RISPERDAL1 MG ORAL (11:02)
--- NOTE | 2019-12-10 13:00 | NUR ---
NURSE NOTES: Patient is discharged to [facility] without any signs of distress. Patient is awake. A&O x 2-3. Respiration is even and unlabored on room air. Denies any pain and discomfort at this time. skin is intact. pt unable to understand discharge teaching because of episodes of confusion; provided reality orientation. IV site and wrist band removed. Patient is placed in a gurney, transported via [facility] accompanied by 2 [employer] FOOD [employer].
--- NOTE | 2019-12-10 23:32 | Psych Consult Progress Note ---
Psychiatry Progress Note Psychiatry Progress Note Neurological/Psychiatric: Reports: anxiety, depressed; Denies: no symptoms, emotional problems, headache, numbness, paresthesia, pre-existing deficit, seizure, tingling, tremors, weakness, other Allergies: Coded Allergies: No Known Allergies (Unverified , 11/26/19) Objective Data Height (Feet): 6 Height (Inches): 0.00 Weight (Pounds): 200 General Appearance: WD/WN, no apparent distress, alert, confused - self and place, other - AOX1 Appearance: disheveled Behavior Mannerisms: good eye contact Mental Status Exam - Affect: blunted Mental Status Exam - Mood: depressed Speech: clear Mental Status Exam - Thought P: confusion, disorganized Mental Status Exam - Suicidal: not present Assessment/Plan [place] I: [place] I Acute encephalopathy. Schizophrenia. [place] II Deferred. [place] III Altered mental status. [place] IV Low. [place] V 40. Risperdal 1mg po qhs the pt is not at imminent dts Status Narrative [place] I Acute encephalopathy. Schizophrenia. [place] II Deferred. [place] III Altered mental status. [place] IV Low. [place] V 40. Risperdal 1mg po qhs the pt is not at imminent dts Assessment/Plan: [place] I Acute encephalopathy. Schizophrenia. [place] II Deferred. [place] III Altered mental status. [place] IV Low. [place] V 40. Risperdal 1mg po qhs the pt is not at imminent dts Kirstin Fairchild MD Dec 10, 2019 23:32
--- NOTE | 2019-12-11 06:18 | Cardiology Report ---
APPROVED REPORT EKG Measurement Heart [id number] <Conclusion> Normal sinus rhythm Nonspecific T wave abnormality Abnormal ECG
== END 2019-12-10 13:00 | disposition home or self-care (01) | DRG 425 ==
LOC: EDBD 14:31 → EDBEDREQ 15:44 → EMR 16:08 → EDBEDREQ 16:27 → 2E 16:52 → EDBEDREQ 20:36 → 4E 12-09 01:25
DX: E87.6 Hypokalemia (principal); G92 Toxic encephalopathy; N17.0 Acute kidney failure with tubular necrosis; T50.905A Adverse effect of unspecified drugs, medicaments and biological substances, initial encounter; N18.9 Chronic kidney disease, unspecified; E55.9 Vitamin D deficiency, unspecified; F20.89 Other schizophrenia; I45.81 Long QT syndrome; Z91.14 Patient's other noncompliance with medication regimen; I12.9 Hypertensive chronic kidney disease with stage 1 through stage 4 chronic kidney disease, or unspecified chronic kidney disease; J44.9 Chronic obstructive pulmonary disease, unspecified
CPT/HCPCS: 36415; 70450; 71250; 76770; 80048; 80053; 80307; 81003; 82306; 82550; 82607; 83735; 84100; 84132; 84133; 84425; 84443; 84484; 85007; 85025; 85610; 85730; 86850; 86900; 86901; 87081; 93005; 96365; 96366; 99291; C9399; G0480; J7030; J8499

== ENCOUNTER 2020-01-01 12:53 | Emergency (ER) | payer MEDICAID ==
[~2020-01-01] VITALS: Ht 175.3 cm; Wt 99.8 kg
[~2020-01-01 12:53] MED LIST changes: +MIRTAZAPINE30 MG ORAL; +RISPERDAL1 MG ORAL; +VITAMIN D250 MC1 PO; +VITAMIN D31 M1 MC
--- NOTE | 2020-01-01 12:53 | NUR ---
ED Nurse Note: Pt brought in by ambulance from psych facility d/t possible unwitnessed seizure. Oral trauma noted. Respirations even and unlabored on room air. Vitals stable as documented. A+Ox2, unaware of date or why he is here, but speaking in complete sentences.
[2020-01-01 13:05] VITALS: BP 131/79
--- NOTE | 2020-01-01 13:26 | NUR ---
ED Nurse Note: pt aware of need for urine sample
[2020-01-01 13:39] LABS: BASOPHILS % (AUTO) 1.6 % (0.0-2.0); EOSINOPHILS % (AUTO) 4.4 % (0.0-3.0); HEMATOCRIT 39.4 % (42.0-52.0); HEMOGLOBIN 12.6 G/DL (14.2-18.0); LYMPHOCYTES % (AUTO) 21.8 % (20.0-45.0); MEAN CORPUSCULAR VOLUME 93 FL (80-99); MONOCYTES % (AUTO) 9.8 % (1.0-10.0); NEUTROPHILS % (AUTO) 62.4 % (45.0-75.0); PLATELET COUNT 226 K/UL (150-450); RED BLOOD COUNT 4.24 M/UL (4.70-6.10); RED CELL DISTRIBUTION WIDTH 14.2 % (11.6-14.8); WHITE BLOOD COUNT 6.3 K/UL (4.8-10.8)
[2020-01-01 13:56] LABS: CALCIUM 8.9 MG/DL (8.5-10.1); CREATININE 1.7 MG/DL (0.55-1.30); POTASSIUM 3.7 MMOL/L (3.5-5.1)
[2020-01-01 14:03] LABS: ALBUMIN 3.5 G/DL (3.4-5.0); ALBUMIN/GLOBULIN RATIO 0.9 (1.0-2.7); BILIRUBIN,TOTAL 0.4 MG/DL (0.2-1.0)
--- NOTE | 2020-01-01 14:11 | NUR ---
ED Nurse Note: pt back from CT, no acute distress noted.
[2020-01-01 15:00] VITALS: BP 136/75
--- NOTE | 2020-01-01 15:06 | Diagnostic Imaging Report ---
Indications: Altered mental status Technique: Spiral acquisitions obtained through the brain. Angled axial and coronal 5 x 5 mm slices were reconstructed. Total dose length product 2144 mGycm. CTDI vol(s) 53 x 2 mGy. Dose reduction achieved using automated exposure control Comparison: 12/06/2019 Findings: No acute intracranial hemorrhage or edema. No mass effect nor midline shift. Normal john-white differentiation. Normal size ventricles and extra axial CSF spaces. There is again demonstrated in the subcutaneous scalp lesion in the right hilar region posteriorly. The calvarium is intact. The mastoids are clear. Visualized orbits and sinuses are unremarkable. No significant change Impression: Negative The CT scanner at [facility] is accredited by the [employer] and the scans are performed using protocols designed to limit radiation exposure to as low as reasonably achievable to attain images of sufficient resolution adequate for diagnostic evaluation.
[2020-01-01 15:22] LABS: APPEARANCE,URINE CLEAR; BILIRUBIN, URINE NEGATIVE (NEGATIVE); COLOR,URINE PALE YELLOW; GLUCOSE, URINE (UA) NEGATIVE (NEGATIVE); KETONES,URINE NEGATIVE (NEGATIVE); NITRITE,URINE NEGATIVE (NEGATIVE); PH,URINE 6 (4.5-8.0); PROTEIN,URINE NEGATIVE (NEGATIVE); UROBILINOGEN,URINE NORMAL MG/DL (0.0-1.0)
[2020-01-01 15:46] LABS: LEUKOCYTE ESTERASE ,URINE NEGATIVE (NEGATIVE)
--- NOTE | 2020-01-01 15:56 | Emergency Room Report ---
History of Present Illness General Chief Complaint: Seizure Source: Patient Present Illness HPI Disclaimer: Please note that this report is being documented using DRAGON technology. This can lead to erroneous entry secondary to incorrect interpretation by the dictating instrument. HPI: This is a 59-year-old male with a past medical history of schizophrenia he presented from a nursing facility. Possibly seizures presents after possible seizure. Patient was at his neurologic baseline on arrival. At baseline he is confused. Patient had no medical complaints in the ER. Denies any pain. Allergies: Coded Allergies: No Known Allergies (Unverified , 11/26/19) COVID-19 Screening Contact w/high risk pt: No Experienced COVID-19 symptoms?: No COVID-19 Testing performed GENERAL STORE MANAGER: No Patient History Reviewed Nursing Documentation: PMH: Agreed; PSxH: Agreed Nursing Documentation-PMH Past Medical History: No History, Except For Hx Hypertension: Yes - ANEMIA Hx COPD: Yes Hx Neurological Problems: No Review of Systems All Other Systems: negative except mentioned in HPI Physical Exam Vital Signs Date Time Temp Pulse Resp B/P (MAP) Pulse Ox O2 Delivery O2 Flow Rate FiO2 01/01/20 12:44 97.9 104 17 126/82 (97) 98 Room Air Sp02 EP Interpretation: reviewed, normal General Appearance: well appearing, no apparent distress Head: normocephalic, atraumatic Eyes: bilateral eye PERRL, bilateral eye EOMI ENT: hearing grossly normal, moist mucus membranes Neck: full range of motion, supple Respiratory: lungs clear, normal breath sounds, no rhonchi, no respiratory distress, no retraction, no wheezing Cardiovascular #1: normal peripheral pulses, regular rate, rhythm, no murmur Gastrointestinal: non tender, soft, non-distended, no guarding Neurologic: alert, supervisor fruit grading III-XII nml as tested, cerebellar normal, no focal defects, other - Alert and oriented to name Skin: normal color, warm/dry Medical Decision Making Diagnostic Impression: Primary Impression: Seizure-like activity ER Course Patient presented after possible seizure-like activity. In the ER he was alert and oriented to his name. He had no focal neurologic deficits. CT scan of the brain showed no acute process. Laboratory studies showed no significant abnormalities. He was observed for approximately 2 hours with no recurrent seizure-like activity. He has no listed antiseizure medications at this time and I believe patient requires admission the hospital because he is alert and oriented to his name at his neurologic baseline, no acute distress stable vital signs without any evidence of seizure-like activity in the ER and no medical complaints. Will discharge back to [facility] facility. EKG Diagnostic Results Rate: normal Rhythm: NSR Other Impression Prolonged QT Last Vital Signs Date Time Temp Pulse Resp B/P (MAP) Pulse Ox O2 Delivery O2 Flow Rate FiO2 01/01/20 13:05 98.5 98 18 131/79 99 Room Air Disposition: HOME, SELF-CARE Condition: Stable Higinio Armando M.D. Jan 01, 2020 15:56
[2020-01-01 17:00] VITALS: BP 148/83
--- NOTE | 2020-01-01 18:07 | NUR ---
ED Nurse Note: report given to antonieta
--- NOTE | 2020-01-01 18:09 | NUR ---
ED Nurse Note: [facility] @ bedside. Report given.
[2020-01-01 18:15] VITALS: BP 137/79
--- NOTE | 2020-01-01 18:15 | NUR ---
ER DISCHARGE NOTE: Patient is cleared to be discharged per ERMD, pt is aox4, on room air, with stable vital signs. pt was given dc instructions, pt was able to verbalize understanding, pt id band and iv site removed without complications. pt is able to ambulate with steady gait. pt took all belongings. Pt discharged via gurney with ambulance personnel en route back to psych facility.
== END 2020-01-01 18:15 | disposition home or self-care (01) ==
LOC: EDBD 12:53 → EMR 16:31
DX: R56.9 Unspecified convulsions (principal); F20.9 Schizophrenia, unspecified; J44.9 Chronic obstructive pulmonary disease, unspecified; R41.82 Altered mental status, unspecified
CPT/HCPCS: 36415; 70450; 80053; 81003; 83690; 85025; Z7502; 99284